=== PATIENT | male | born 1955 | race Caucasian/White ===

== ENCOUNTER → 2018-01-26 10:26 | Outpatient (CLI) | payer BC, SELFPAY ==
[2018-01-26 12:56] LABS: Alanine Aminotransferase 52 U/L (12-78); Albumin/Globulin Ratio 1.4 (1.1-1.8); Alkaline Phosphatase 82 U/L (46-116); Anion Gap 15.1 mEq/L (5-15); Aspartate Amino Transferase 40 U/L (15-37); Bilirubin,Total 0.7 mg/dL (0.2-1.0); Blood Urea Nitrogen 18 mg/dL (7-18); CKMB Relative Index 1.1 U/L (0-4.0); Calcium 9.9 mg/dL (8.5-10.1); Carbon Dioxide 27 mmol/L (21.0-32.0); Chloride 103 mmol/L (98-107); Creatine Kinase 84 U/L (39-308); Creatine Kinase MB 0.9 ng/ml (0.0-3.6); Creatinine,Serum 1.41 mg/dL (0.70-1.30); Estimated Glomerular Filt Rate 51 ml/min (>60); GFR (African American) 61 ML/MIN (>60); Globulin 2.9 gm/dl (1.3-3.2); Glucose 143 mg/dL (74-106); Potassium 4.1 mmoL/L (3.5-5.1); Sodium 141 mmol/L (136-145); Total Protein,Serum 6.9 gm/dL (6.4-8.2); Troponin I < 0.02 ng/ml (0.00-0.06)
== END ==
PROVIDERS: Visit Provider Family Medicine
DX: E11.9 Type 2 diabetes mellitus without complications (principal); I49.3 Ventricular premature depolarization
CPT/HCPCS: 80053; 82550; 82553; 84484; 93005

== ENCOUNTER → 2018-08-05 12:44 | Outpatient (CLI) | payer BC, SELFPAY | PROVIDERS: PCP Family Medicine; Visit Provider Family Medicine | DX: I49.3 Ventricular premature depolarization (principal) | CPT/HCPCS: 93005 ==

== ENCOUNTER → 2020-05-03 05:38 | Outpatient (CLI) | payer MEDICARE, SELFPAY ==
--- NOTE | 2020-05-03 06:14 | CA_ITS ---
APPROVED REPORT Exam: Pharmacologic Technologist: Debra Nobles Ht: 5 ft 9 in Wt: 219 lbs BSA: 2.15 m2 HR: 58 bpm BP: 126/88 mmHg Indications: Chest pain, Shortness of Breath, Dizziness, Prem Carotids Medical History Medications: Irbesartan,,,,, Metoprolol,,,,, Metformin,,,,, Atorvastatin,,,,, HCTZ,,,,, Albuterol,,,,, Montelukast,,,,, Famotidine,,,,, FeNOfibrate,,,,, Esomeprazole,,,,, Celecoxib,,,,, Levocetirizine,,,,, Stress Test Details Test: LEXISCAN HR Resting HR: 65 bpm Max Heart Rate (APMHR): 154 bpm Max HR Achieved: 90 bpm Target HR (85% APMHR): 130 bpm % of APMHR: 58 Recovery HR: 82 bpm BP Resting BP: 126.0/88.0 mmHg Max BP: 153.0/86.0 mmHg Recovery BP: 132.0/82.0 mmHg ECG Clinical Reason for Termination: Completed Protocol Exercise duration: 04:00 min Highest Stage Achieved: Stress ECG Conclusion Resting ECG: Normal sinus rhythm, PVC's Symptoms: No chest pain Arrhythmias/Ectopy: Frequent PVC's, Rare couplet. ST-T Changes: < 1.[address] Segment changes. Conclusion: Non-diagnostic Lexiscan stress test. Patient received the infusion per protocol without chest pain. Less than 1.[address] segment changes noted. Frequent PVC's noted throughout the test with rare couplet noted. See the nuclear report for further information. Electronically signed by : Raza Lew, 05/03/2020 21:49:26
--- NOTE | 2020-05-03 06:14 | NM_ITS ---
APPROVED REPORT Exam: Nuclear Stress Test Indication: Fatigue, HTN, DM, High cholesterol, Former tobacco use, Family history, Dizziness Patient Location: Outpatient Stress Tech: Debra Nobles [place] Tech:Alyssa Bartholomew, ARRT, RT (R)(N) Ht: 5 ft 9 in Wt: 219 lbs HR: 58 bpm BP: 128/88 mmHg BSA: 2.15 m2 BMI: 32.3 History: Fatigue, HTN, DM, High cholesterol, Former tobacco use, Family history, Dizziness Procedure: Patient received a 0.4 mg of intravenous Lexiscan, resting heart rate 58 bpm, resting blood pressure 128/88 mmHg, with Lexiscan maximum heart rate achived was 87 bpm which is Less than 85 % of the maximum predicted heart rate and blood pressure was 132/71 mmHg. With Lexiscan, patient denied any complaint of chest pain. Electrocardiogram Resting electrocardiogram shows sinus rhythm, with Lexiscan there is less than 1.[address] segment depression noted from the baseline EKG. The EKG portion of the Lexiscan is nondiagnostic. Cardiac Stress and Resting SPECT Images: Cardiac Stress and Resting SPECT images were obtained using technetium 99m Myoview 32.4 mCi stress and 10.21 mCi at rest. Gated SPECT for analysis of segmental wall motion and calculation of the ejection fraction also done. Cardiac stress and resting SPECT images show uniform myocardial activity without segmental perfusion abnormality, computer derived ejection fraction is 54% with no regional wall motion abnormality, right ventricle is normal size and contractility. There appears to be transient ischemic dilatation of the left ventricle raising the concerns for presence of balanced ischemia. Conclusion: 1. The EKG portion of the Lexiscan Myoview is nondiagnostic. 2. No scintigraphic evidence of reversible ischemia seen, computer derived ejection fraction is 54% with no regional wall motion abnormality, right ventricle is normal size and contractility. There appears to be transient ischemic dilatation of the left ventricle, raising the concerns for presence of balanced ischemia. 3. Abnormal Lexiscan Myoview study. Electronically signed by : Raza Lew, 05/03/2020 21:51:51
--- NOTE | 2020-05-03 06:17 | CA_ITS ---
APPROVED REPORT Nurse Head: CT Laterality: Bilateral Indications: MARIA D Risk Factors Hypertension: Hyperlipidemia Doppler Spectral Velocity Analysis ECA (R) 87.40/18.80 cm/s ECA (L) 86.00/17.20 cm/s dICA (R) 83.10/28.40 cm/s dICA (L) 86.80/29.20 cm/s Humera (R) 72.60/30.70 cm/s Humera (L) 86.80/36.70 cm/s pICA (R) 64.20/22.50 cm/s pICA (L) 68.10/15.00 cm/s dCCA (R) 69.40/20.60 cm/s dCCA (L) 62.90/18.70 cm/s pCCA (R) 78.00/20.60 cm/s pCCA (L) 90.50/29.20 cm/s Vert (R) 50.80/10.20 cm/s Vert (L) 65.10/21.00 cm/s ICA/CCA 1.20 ICA/CCA 1.40 Findings Duplex evaluation demonstrates stenosis of the right proximal internal carotid artery <20%. Duplex evaluation demonstrates stenosis of the left proximal internal carotid artery in the range of 20-49%, lower end of scale. Plague noted in the bulb. Duplex evaluation demonstrates antegrade flow of the bilateral Vertebral Arteries. Conclusion Duplex evaluation demonstrates stenosis of the right proximal internal carotid artery <20%. Duplex evaluation demonstrates stenosis of the left proximal internal carotid artery in the range of 20-49%, lower end of scale. Plague noted in the bulb. Duplex evaluation demonstrates antegrade flow of the bilateral Vertebral Arteries. Electronically signed by : Bill Piedra MD 05/04/2020 16:36:35
--- NOTE | 2020-05-03 06:17 | CA_ITS ---
APPROVED REPORT EXAM: Comprehensive 2D, Doppler, and color-flow Echocardiogram Medical Facilities Section Director: Jerilyn Mujica RVT Ht: 5 ft 9 in Wt: 219lbs BSA: 2.15 BP: 118/85 mmHg Indications: CP,MURMUR,EX SMOKER,SOA,BREAUX,HTN,HLD,DIZZINESS,CAD,PVC,GERD TDS 2D Dimensions LVOT 1.86 cm (M/F) 1.5-2.5 M-Mode Dimensions RVDd 3.13 cm (0.9-2.6) LVDd 5.01 cm (3.5-5.7) LVDs 3.22 cm (3.5-5.7) IVSd 1.03 cm (0.6-1.1) PWd 0.95 cm (0.6-1.1) EF (Teich) 65.00% FS 35.70% EDV (Teich) 118.80 mL ESV (Teich) 41.60 mL LV Diastology E/A Ratio 0.62 Mitral Valve MV A Velocity 86.00 (40-130 cm/s) Left Ventricle Left atrium is mildly enlarged, left ventricle is normal size, mild concentric left ventricular hypertrophy, visually estimated ejection fraction 55% with no regional wall motion abnormality, grade 1 diastolic dysfunction seen without tissue Doppler evidence of raise left atrial pressure. Right Ventricle Right atrium is normal size, right ventricle is mildly enlarged with normal contractility. Aortic Valve Aortic valve is minimally thickened and fibrosed, there is no aortic stenosis or aortic insufficiency. Mitral Valve Mitral valve is grossly normal, there is mild mitral regurgitation. Tricuspid Valve Tricuspid valve grossly normal, there is mild tricuspid regurgitation, tricuspid regurgitation jet velocity is inadequate for calculation of the right ventricular systolic pressure. Pulmonic Valve Pulmonic valve is poorly visualized. Great Vessels Aortic root is normal size. Pericardium No significant pericardial effusion noted. Conclusion 1. Mildly enlarged left atrium, normal left ventricular size, mild concentric left ventricular hypertrophy, visually estimated ejection fraction 55% with no regional wall motion abnormality, grade 1 diastolic dysfunction seen without tissue Doppler evidence of raise left atrial pressure. 2. Mildly enlarged right ventricle with normal contractility. 3. Mild mitral and tricuspid regurgitation. 4. No significant pericardial effusion noted. Electronically signed by : Raza Lew, 05/03/2020 19:55:30
--- NOTE | 2020-05-03 08:37 | HMH.ITSHM ---
Current Home Medications as stated by this patient Ariana Joseph or signs sales representative. []OSTEO BIFLEX METFORMIN [facility] CELECOXIB FENOFIBRATE INVOKANA ASA HCTZ TRULICITY VENTOLIN COQ10 ESOMEPRAZOLE METOPROLOL ATORVASTATIN LEVOCETIRIZINE FLUTICASONE
== END ==
PROVIDERS: PCP Family Medicine; Visit Provider Internal Medicine Cardiovascular Disease
DX: I49.3 Ventricular premature depolarization; K21.9 Gastro-esophageal reflux disease without esophagitis; R06.00 Dyspnea, unspecified; R07.89 Other chest pain; I65.23 Occlusion and stenosis of bilateral carotid arteries
CPT/HCPCS: 78452; 93017; 93306; 93880; A9502; J2785

== ENCOUNTER → 2020-05-04 07:31 | Outpatient (CLI) | payer SELFPAY ==
--- NOTE | 2020-05-04 07:32 | CT_ITS ---
PROCEDURE: CT HEART W CALCIUM SCORE CLINICAL HISTORY: DM COMPARISON: No exams were available for comparison TECHNIQUE: Axial images obtained with sagittal and coronal reformats. All CT scans at the facility use one or more dose reduction, viz: automated exposure control, ma/kV adjustment per patient size (including targeted exams where dose is matched to indication, i.e. head), or iterative reconstruction technique. FINDINGS: Coronary artery calcium score is 43 indicating mild calcific plaque burden with moderate cardiovascular disease risk. Incidental findings include mild nonspecific thickening of the distal esophagus. There are some degenerative changes in the thoracic spine. IMPRESSION: Mild calcific plaque burden with moderate cardiovascular disease risk Dictated by: Bill Piedra MD 05/04/2020 16:57 Bill Piedra MD in [place] 05/04/2020 16:57
== END ==
PROVIDERS: PCP Family Medicine; Visit Provider Internal Medicine Cardiovascular Disease
DX: E11.9 Type 2 diabetes mellitus without complications (principal); I10 Essential (primary) hypertension; E78.5 Hyperlipidemia, unspecified
CPT/HCPCS: 75571

== ENCOUNTER → 2020-11-29 16:09 | Outpatient (CLI) | payer MEDICARE, SELFPAY | PROVIDERS: PCP Family Medicine; Visit Provider Family Medicine | DX: I49.3 Ventricular premature depolarization (principal) | CPT/HCPCS: 93225; 93226 ==

== ENCOUNTER → 2021-01-06 11:46 | Outpatient (CLI) | payer MEDICARE, SELFPAY ==
[2021-01-06 13:16] LABS: Alanine Aminotransferase 43 U/L (12-78); Albumin Level 4.7 g/dl (3.5-5.0); Alkaline Phosphatase 93 U/L (38-126); Anion Gap 17.2 mEq/L (5-15); Aspartate Amino Transferase 47 U/L (17-59); Bilirubin,Direct 0.1 mg/dl (0.0-0.4); Bilirubin,Indirect 0.5 mg/dL (0.0-0.9); Bilirubin,Total 0.6 mg/dl (0.2-1.3); Bilirubin,Unconjugated 0.5 mg/dL (0.0-1.1); Blood Urea Nitrogen 19 mg/dl (9-20); Calcium 10.5 mg/dl (8.4-10.2); Carbon Dioxide 24 mmol/L (22.0-30.0); Chloride 104 mmol/L (98-107); Chol/HDL Ratio 3.3 (1-3.5); Cholesterol 135 mg/dl (140-200); Estimated Glomerular Filt Rate 67 ml/min (>60); GFR (African American) 81 ML/MIN (>60); Glucose 139 mg/dl (74-100); HDL Cholesterol 41 mg/dl (40-60); Magnesium 1.9 mg/dl (1.6-2.3); Potassium 5.2 mmoL/L (3.5-5.1); Sodium 140 mmol/L (136-145); Total Protein,Serum 7.1 g/dl (6.3-8.2); Triglycerides 244 mg/dl (30-150); VLDL Cholesterol 49 mg/dL (0-40)
[2021-01-06 13:27] LABS: Direct LDL Cholesterol 59.05 mg/dL (100-129)
== END ==
PROVIDERS: Visit Provider Internal Medicine Cardiovascular Disease
DX: E11.69 Type 2 diabetes mellitus with other specified complication (principal); E78.5 Hyperlipidemia, unspecified; I10 Essential (primary) hypertension; I25.10 Atherosclerotic heart disease of native coronary artery without angina pectoris; I65.23 Occlusion and stenosis of bilateral carotid arteries; K21.9 Gastro-esophageal reflux disease without esophagitis; E11.9 Type 2 diabetes mellitus without complications; I49.3 Ventricular premature depolarization; R06.00 Dyspnea, unspecified; R07.9 Chest pain, unspecified; Z79.84 Long term (current) use of oral hypoglycemic drugs
CPT/HCPCS: 36415; 80048; 80061; 80076; 83735

== ENCOUNTER → 2022-01-05 11:15 | Outpatient (CLI) | payer MEDICARE, SELFPAY ==
[2022-01-05 11:56] LABS: Basophils # 0.1 K/mm3 (0-0.2); Basophils % 1.3 % (0.1-2.0); Eosinophils # 0.3 K/mm3 (0.0-0.4); Eosinophils % 4.5 % (0.1-12.0); Hematocrit 47.5 % (42.0-52.0); Hemoglobin 15.5 g/dL (14.1-18.0); Lymphocytes # 1.6 K/mm3 (0.7-4.5); Lymphocytes % 23.9 % (10-50); Mean Corpuscular HGB Conc 32.5 g/dL (31.8-35.4); Mean Corpuscular Hemoglobin 29.8 pg (27.0-31.2); Mean Corpuscular Volume 91.7 fl (80-94); Mean Platelet Volume 9.1 fl (7.4-10.4); Monocytes # 0.5 K/mm3 (0.1-1.0); Monocytes % 6.9 % (1.7-9.3); Neutrophils # 4.1 K/mm3 (1.8-7.8); Neutrophils % 63.4 % (37.0-80.0); Platelet Count 232 K/mm3 (142-424); Red Blood Count 5.18 M/mm3 (4.60-6.20); Red Cell Distribution Width 14.6 % (11.5-17.5); White Blood Count 6.5 K/mm3 (4.8-10.8)
[2022-01-05 12:18] LABS: Chloride 105 mmol/L (98-107)
[2022-01-05 12:19] LABS: Potassium 4.5 mmoL/L (3.5-5.1); Sodium 139 mmol/L (136-145)
[2022-01-05 12:21] LABS: Alanine Aminotransferase 51 U/L (12-78); Anion Gap 11.5 mEq/L (5-15); Aspartate Amino Transferase 50 U/L (17-59); Bilirubin,Unconjugated 0.4 mg/dL (0.0-1.1); Blood Urea Nitrogen 20 mg/dl (9-20); Carbon Dioxide 27 mmol/L (22.0-30.0); Estimated Glomerular Filt Rate 60 ml/min (>60); GFR (African American) 73 ML/MIN (>60)
[2022-01-05 12:22] LABS: Albumin Level 4.2 g/dl (3.5-5.0); Alkaline Phosphatase 129 U/L (38-126); Bilirubin,Direct 0.2 mg/dl (0.0-0.4); Bilirubin,Indirect 0.4 mg/dL (0.0-0.9); Bilirubin,Total 0.6 mg/dl (0.2-1.3); Calcium 9.1 mg/dl (8.4-10.2); Chol/HDL Ratio 4.4 (1-3.5); Cholesterol 142 mg/dl (140-200); Glucose 169 mg/dl (74-100); HDL Cholesterol 32 mg/dl (40-60); Total Protein,Serum 6.4 g/dl (6.3-8.2)
[2022-01-05 12:28] LABS: Triglycerides 478 mg/dl (30-150)
[2022-01-05 12:33] LABS: Direct LDL Cholesterol 52.24 mg/dL (100-129)
[2022-01-05 12:38] LABS: Free T4 (Free Thyroxine) 1.35 ng/dl (0.78-2.19)
[2022-01-05 12:53] LABS: Thyroid Stimulating Hormone 1.45 uIU/mL (0.465-4.68)
== END ==
PROVIDERS: Visit Provider Physician Assistant
DX: E11.69 Type 2 diabetes mellitus with other specified complication (principal); E78.5 Hyperlipidemia, unspecified; I10 Essential (primary) hypertension; I25.10 Atherosclerotic heart disease of native coronary artery without angina pectoris; I49.1 Atrial premature depolarization; I49.3 Ventricular premature depolarization; I65.23 Occlusion and stenosis of bilateral carotid arteries; K21.9 Gastro-esophageal reflux disease without esophagitis; I63.9 Cerebral infarction, unspecified; I11.9 Hypertensive heart disease without heart failure; E11.9 Type 2 diabetes mellitus without complications; R06.00 Dyspnea, unspecified; Z79.84 Long term (current) use of oral hypoglycemic drugs; Z87.891 Personal history of nicotine dependence
CPT/HCPCS: 36415; 80048; 80061; 80076; 84439; 84443; 85025

== ENCOUNTER 2022-02-08 10:48 | Emergency (ER) | payer MEDICARE, SELFPAY ==
[2022-02-08 11:07] VITALS: BP 147/84; PULSE 73; RESP 19; TEMP 37.1; O2SAT 95; BMI 31.7
--- NOTE | 2022-02-08 11:24 | HMH.EDUTC ---
[facility] Disposition Clinical Impression: Exposure to COVID-19 virus, Viral syndrome Sinusitis Qualifiers: Sinusitis location: unspecified location Chronicity: acute Recurrence: non-recurrent Qualified Code(s): J01.90 - Acute sinusitis, unspecified Disposition: Home, Self-Care Condition on Discharge: Good Instructions: DI for Sinusitis, DI for Viral Syndrome, Preventing the Spread of Coronavirus Discharge Instructions Additional Instructions: Drink plenty of fluids. Take tylenol or ibuprofen for pain or fever. Take the medications as directed. Follow up with your regular doctor. GO TO THE ER FOR ANY WORSENING SYMPTOMS Quarantine until you know the results of your covid-19 test. Notify your school or workplace of your results and follow their instructions regarding return to work/school. Prescriptions: Benzonatate [Benzonatate 100mg cap] 100 mg PO TIDP PRN #30 cap PRN Reason: Cough Transmission Status: Received by [facility] Mail Delivery Azithromycin [Z-Be 250mg Tab*] 250 mg PO UD DOSE PK #6 tab Transmission Status: Received by [facility] Mail Delivery Referrals: Henny Oglesby MD [Primary Care Provider] - Time of Disposition: 11:39 Medical Decision Making - Medical Records Medical records reviewed: No: I reviewed the patient's medical records. - Pedro Inquiry Pt receiving controlled substance: No Vital Signs: 02/08/22 11:07 02/08/22 11:44 Temperature 98.7 F 98.7 F Temperature Source Oral Pulse Rate 73 Pulse Rate [Left Radial] 73 Respiratory Rate 19 19 Blood Pressure 147/84 H Blood Pressure [Right Arm] 147/84 H Blood Pressure Mean [Right Arm] 105 02 Sat by Pulse Oximetry 95 - Lab Data Lab results reviewed: Yes: I reviewed the patient's lab results. Orders (Tests/Meds): ORDERS Category Date Time Status Covid-19 Nasal PCR ([facility]) Routine Lab 02/08/22 11:02 Received Full Resp Panel w/COVID ([facility]) Routine Lab 02/08/22 11:44 Received [facility] HPI - General Stated complaint: h/a, body aches, congestion Time Seen by Provider: 02/08/22 11:25 Mode of Arrival: Ambulatory Source of Information: Patient Limitations: No Limitations Description of Symptoms (Recalled from Triage Doc. by RN): pt was exposed to covid from his . here to get a covid test. body aches, head aches, chest congestion, runny nose, watery eyes, feels bad HEENT Symptoms (Recalled from RN notes): Yes Resp Symptoms (Recalled from RN notes): Yes Skin Symptoms (Recalled from RN notes): No MS Symptoms (Recalled from RN notes): No Functional Status (Recalled from RN notes): wnl - History of Present Illness Provider Complaint: He states that his was diagnosed with covid-19 2 days ago. He states that since last night he has had scratchy throat, nonproductive cough, chills and malaise. He denies any shortness of breath. He has nausea, but no vomiting or diarrhea. - Related Data Home Medications Medication Instructions Recorded Confirmed Lactobacills gasseri-Bifidobac cap PO 04/22/20 01/05/22 bifidum,longum 1.5 billion cell capsule albuterol sulfate 90 mcg/actuation 2 inh INHALATION Q6H PRN g 04/22/20 01/05/22 aerosol inhaler canagliflozin 300 mg tablet 300 mg PO DAILY tab 04/22/20 01/05/22 celecoxib 200 mg capsule 200 mg PO DAILY cap 04/22/20 01/05/22 coenzyme Q10 200 mg capsule 200 mg PO DAILY 04/22/20 01/05/22 dulaglutide 1.5 mg/0.5 mL 1.5 mg SQ QWEEK ml 04/22/20 01/05/22 subcutaneous pen injector esomeprazole magnesium 40 mg 40 mg PO DAILY cap 04/22/20 01/05/22 capsule,delayed release fenofibrate nanocrystallized 145 145 mg PO DAILY tab 04/22/20 01/05/22 mg tablet glucosamine-chondroitin 250 mg-200 2 tab PO DAILY tab 04/22/20 01/05/22 mg tablet irbesartan 150 1 tab PO DAILY tab 04/22/20 01/05/22 mg-hydrochlorothiazide 12.5 mg tablet levocetirizine 5 mg tablet 5 mg PO DAILY tab 04/22/20 01/05/22 metformin 500 mg tablet 500 mg PO BI
[2022-02-08 11:44] VITALS: BP 147/84; PULSE 73; RESP 19; TEMP 37.1
[2022-02-08 11:51] LABS: Adenovirus,PCR Not Detected (NotDetected); Bordetella Pertussis Not Detected (NotDetected); Chlamydophila Pneumoniae, PCR Not Detected (NotDetected); Coronavirus 229E Not Detected (NotDetected); Coronavirus NL63 Not Detected (NotDetected); Coronavirus OC43 Not Detected (NotDetected); Coronovirus HKU1,PCR Not Detected (NotDetected); Human Metapneumovirus Not Detected (NotDetected); Influenza A, PCR Not Detected (NotDetected); Influenza AH1, 2009 Not Detected (NotDetected); Influenza AH1, PCR Not Detected (NotDetected); Influenza AH3,PCR Not Detected (NotDetected); Influenza B, PCR Not Detected (NotDetected); Mycoplasma Pneumoniae, PCR Not Detected (NotDetected); Parainfluenza 1, PCR Not Detected (NotDetected); Parainfluenza 2, PCR Not Detected (NotDetected); Parainfluenza 3, PCR Not Detected (NotDetected); Parainfluenza 4, PCR Not Detected (NotDetected); Respiratory Syncytial Virus Not Detected (NotDetected); Rhinovirus/Enterovirus Not Detected (NotDetected)
[2022-02-08 14:29] LABS: Coronavirus 19, PCR Detected (NotDetected)
== END 2022-02-08 11:50 | disposition home or self-care (01) ==
PROVIDERS: Emergency Provider Nurse Practitioner Family; PCP Family Medicine
DX: U07.1 COVID-19 (principal); J01.90 Acute sinusitis, unspecified; B34.9 Viral infection, unspecified; K21.9 Gastro-esophageal reflux disease without esophagitis; I10 Essential (primary) hypertension; E78.5 Hyperlipidemia, unspecified
CPT/HCPCS: 87581; 87632; 87798; 99213; C9803; G0463; U0003; U0005

== ENCOUNTER → 2022-07-28 06:49 | Outpatient (CLI) | payer MEDICARE, SELFPAY ==
--- NOTE | 2022-07-28 | CA_ITS ---
APPROVED REPORT Exam: Exercise Treadmill Technologist: Blanca Villegas, Ht: 5 ft 9 in Wt: 210 lbs BSA: 2.11 m2 HR: 67 bpm BP: 138/93 mmHg Rhythm: NSR, Infe ST-T abnormalities. PVCs Medical History Medical History: HTN, Hyperlipidemia Medications: Metoprolol,,,,, Metformin,,,,, Atorvastatin,,,,, Albuterol,,,,, Montelukast,,,,, Famotidine,,,,, Levocetirizine,,,,, BREo,,,,, DulaGLUTIDE,,,,, CaNAGLIFLOZIN,,,,, Cardiac Risk Factors: HTN, Hyperlipidemia Stress Test Details Test: Tiburcio HR Resting HR: 75 bpm Max Heart Rate (APMHR): 152.046135 bpm Max HR Achieved: 141 bpm Target HR (85% APMHR): 129.621140 bpm % of APMHR: 92.76 Recovery HR: 122 bpm BP Resting BP: 155/83 mmHg Max BP: 182/80 mmHg Recovery BP: 182.0/80.0 mmHg ECG Resting ECG: NSR, Inf ST-T abnormalities, PVCs noted Clinical Reason for Termination: Dyspnea Exercise duration: 09:00 min Highest Stage Achieved: Exercise capacity: 10.1 METs Stress ECG Conclusion Total excersie 9 minutes. 10.1 METS Pt experinced no CP. Frequent PVCs at rest resolved with stress. <1.5mm ST segment changes. Abnormal, non-diagnostic. Stress due to baseline EKG abnormalities. See myoview images. Test Summary RECOVERY 05:26 0.0 0.0 99 . 182/ 80 . . REST . . . . . . . Standing REST . . . . . . . Standing REST 05:57 0.0 0.0 75 . 155/ 83 . . Stage 1 01:00 10.0 1.7 96 . . . . Stage 1 02:00 10.0 1.7 101 . . . . Stage 1 03:00 10.0 1.7 104 . 145/ 85 . . Stage 2 01:00 12.0 2.5 108 . . . . Stage 2 02:00 12.0 2.5 112 . . . . Stage 2 03:00 12.0 2.5 113 . 160/ 92 . . Stage 3 01:00 14.0 3.4 121 . . . . Stage 3 02:00 14.0 3.4 129 . . . . Stage 3 03:00 14.0 3.4 139 . . . Stop exercise at 09:00 RECOVERY 01:00 0.0 0.0 124 . 182/ 80 . . RECOVERY 02:00 0.0 0.0 109 . 182/ 80 . . RECOVERY 03:00 0.0 0.0 100 . 182/ 80 . . RECOVERY 04:00 0.0 0.0 96 . 182/ 80 . . RECOVERY 05:00 0.0 0.0 98 . 182/ 80 . . RECOVERY 05:26 0.0 0.0 99 . 182/ 80 . . Electronically signed by : Raza Lew MD 07/28/2022 14:05:44
--- NOTE | 2022-07-28 07:00 | NM_ITS ---
APPROVED REPORT Exam: Nuclear Stress Test Indication: HTN, DM, HYPERLIPIDEMIA, FM HX., C.P. Patient Location: Outpatient Stress Tech: Blanca Villegas [place] Tech:JEANNIE Smith RT (R)(N)(M) Ht: 5 ft 9 in Wt: 211 lbs HR: 67 bpm BP: 138/93 mmHg BSA: 2.11 m2 TID: 1.00 BMI: 31.1 History: HTN, DM, HYPERLIPIDEMIA, FM HX., C.P. Procedure: Patient exercised on Tiburcio protocol 9:00 minutes and sec, resting heart rate 67 bpm, resting blood pressure 138/93 mmHg, with exercise maximum heart rate achived was 141 bpm which is 93 % of the maximum predicted heart rate and blood pressure was 182/80 mmHg. Test was stopped due to FATIGUE. Patient denied any complaint of chest pain. Patient has Good exercise capacity, achieved 10.1 METs of workload on treadmill, the blood pressure response to exercise was Adequate. Electrocardiogram Resting electrocardiogram showed sinus rhythm, nonspecific ST-T changes, with exercise there is less than 1.[address] segment depression noted from the baseline EKG. The EKG portion of the exercise Myoview is nondiagnostic. Cardiac Stress and Resting SPECT Images: Cardiac Stress and Resting SPECT images were obtained using technetium 99m Myoview 29.5 mCi stress and 9.90 mCi at rest. Gated SPECT for analysis of segmental wall motion and calculation of the ejection fraction also done. Cardiac stress and resting SPECT images show uniform myocardial activity without segmental perfusion abnormality, computer derived ejection fraction is 51% with no regional wall motion abnormality, right ventricle is normal size and contractility. Conclusion: 1. The EKG portion of the exercise Myoview is nondiagnostic due to baseline abnormal EKG, patient has good exercise capacity achieved 10.1 METs of workload on treadmill, the blood pressure response to exercise was adequate, there was no exercise-induced chest discomfort. 2. No scintigraphic evidence of reversible ischemia seen, computer derived ejection fraction 51% with no regional wall motion abnormality, right ventricle is normal size and contractility. 3. Normal exercise Myoview study. Electronically signed by : Raza Lew MD 07/28/2022 14:08:22
== END ==
PROVIDERS: PCP Family Medicine; Visit Provider Internal Medicine Cardiovascular Disease
DX: E78.5 Hyperlipidemia, unspecified (principal); I10 Essential (primary) hypertension; I65.23 Occlusion and stenosis of bilateral carotid arteries; I20.8 Other forms of angina pectoris
CPT/HCPCS: 78452; 93017; A9502

== ENCOUNTER 2023-01-10 10:00 | Day surgery (SDC) | payer MEDICARE, SELFPAY ==
[2023-01-10 10:07] VITALS: BMI 31.6
[2023-01-10 10:30] VITALS: BP 160/87; PULSE 88; RESP 18; TEMP 36.9; O2SAT 97
[2023-01-10 10:35] VITALS: PULSE 83
[2023-01-10 10:42] VITALS: BP 161/84; PULSE 87; PULSE 89; RESP 18; O2SAT 96
[2023-01-10 10:43] VITALS: BP 161/84; PULSE 89; RESP 20; O2SAT 96
--- NOTE | 2023-01-10 12:39 | P.PCN_ITS ---
[facility] Loop Recorder Date: 01/10/23 Time: 10:00 Procedure Performed:: Implantation of loop recorder Indication:: Palpitation Technique:: Patient was brought to the cardiac Silk Screen Operator. After informed consent obtained, 1% lidocaine with epinephrine was used to anesthetize the site along the left anterior aspect of the chest near the sternal border. Using the preformed scalpel, an incision was made and using the supplied preloaded apparatus, the loop recorder was placed subcutaneously without difficulty. Following the deployment of the loop recorder interrogation of the device was performed to ensure appropriate voltage was being detected. Once this was verified, Steri- Strips were placed over the incision and the patient was prepped to discharge home. Patient tolerated the procedure well with minimal discomfort. Impression:: Successful implantation of loop recorder Serial Number:: [employer] [facility] model 4500 Serial #[id number] Plan:: Routine postop care
== END 2023-01-10 10:57 | disposition home or self-care (01) ==
PROVIDERS: PCP Family Medicine; Visit Provider Internal Medicine
DX: R00.2 Palpitations (principal); E11.9 Type 2 diabetes mellitus without complications; Z79.4 Long term (current) use of insulin; R55 Syncope and collapse; I25.10 Atherosclerotic heart disease of native coronary artery without angina pectoris; I10 Essential (primary) hypertension; I65.23 Occlusion and stenosis of bilateral carotid arteries; K21.9 Gastro-esophageal reflux disease without esophagitis; I49.3 Ventricular premature depolarization; R42 Dizziness and giddiness; E78.5 Hyperlipidemia, unspecified
CPT/HCPCS: 33285; C1764

== ENCOUNTER → 2023-03-29 14:12 | Outpatient (CLI) | payer MEDICARE, SELFPAY ==
--- NOTE | 2023-03-29 14:23 | XR_ITS ---
FINAL REPORT CLINICAL HISTORY: Lt knee pain FINDINGS: LEFT KNEE SERIES Three views of the left knee were obtained. There is no acute fracture or dislocation. There is moderate degenerative change. There is no soft tissue abnormality. There are one or two loose bodies posteriorly measuring approximately 7 mm. IMPRESSION: Moderate degenerative change. One or two loose bodies posteriorly measuring approximately 7 mm. Reviewed, Interpreted and Dictated by Sanjeev Rodrigez III, MD Transcribed by Cristóbal Menezes Authenticated and . [facility]
== END ==
PROVIDERS: PCP Family Medicine; Visit Provider Orthopaedic Surgery
DX: M25.562 Pain in left knee (principal)
CPT/HCPCS: 73562

== ENCOUNTER → 2023-05-10 07:35 | Outpatient (CLI) | payer MEDICARE, SELFPAY ==
[2023-05-10 07:52] LABS: Basophils # 0.1 K/mm3 (0-0.2); Basophils % 0.9 % (0.1-2.0); Eosinophils # 0.5 K/mm3 (0.0-0.4); Eosinophils % 7.8 % (0.1-12.0); Hematocrit 46.4 % (42.0-52.0); Hemoglobin 14.7 g/dL (14.1-18.0); Lymphocytes # 1.6 K/mm3 (0.7-4.5); Lymphocytes % 25.9 % (10-50); Mean Corpuscular HGB Conc 31.8 g/dL (31.8-35.4); Mean Corpuscular Hemoglobin 28.3 pg (27.0-31.2); Mean Corpuscular Volume 89.1 fl (80-94); Mean Platelet Volume 8.1 fl (7.4-10.4); Monocytes # 0.5 K/mm3 (0.1-1.0); Monocytes % 7.1 % (1.7-9.3); Neutrophils # 3.7 K/mm3 (1.8-7.8); Neutrophils % 58.3 % (37.0-80.0); Platelet Count 230 K/mm3 (142-424); Red Blood Count 5.21 M/mm3 (4.60-6.20); Red Cell Distribution Width 14.1 % (11.5-17.5); White Blood Count 6.3 K/mm3 (4.8-10.8)
[2023-05-10 09:03] LABS: Chloride 102 mmol/L (98-107); Potassium 4.4 mmoL/L (3.5-5.1); Sodium 140 mmol/L (136-145)
[2023-05-10 09:06] LABS: Blood Urea Nitrogen 23 mg/dl (9-20); Estimated Glomerular Filt Rate 60 ml/min (>60); GFR (African American) 73 ML/MIN (>60)
[2023-05-10 09:07] LABS: Anion Gap 14.4 mEq/L (5-15); Calcium 9.4 mg/dl (8.4-10.2); Carbon Dioxide 28 mmol/L (22.0-30.0); Glucose 176 mg/dl (74-100)
== END ==
PROVIDERS: PCP Family Medicine; Visit Provider Nurse Practitioner Family
DX: E11.9 Type 2 diabetes mellitus without complications (principal); E78.5 Hyperlipidemia, unspecified; I10 Essential (primary) hypertension; I25.10 Atherosclerotic heart disease of native coronary artery without angina pectoris; I49.3 Ventricular premature depolarization; I63.9 Cerebral infarction, unspecified; I65.29 Occlusion and stenosis of unspecified carotid artery; K21.9 Gastro-esophageal reflux disease without esophagitis
CPT/HCPCS: 36415; 80048; 85025

== ENCOUNTER → 2023-08-13 11:32 | Outpatient (CLI) | payer MEDICARE, SELFPAY ==
[2023-08-13 12:52] LABS: Basophils # 0.1 K/mm3 (0-0.2); Basophils % 0.8 % (0.1-2.0); Eosinophils # 0.4 K/mm3 (0.0-0.4); Eosinophils % 4.1 % (0.1-12.0); Hematocrit 48.7 % (42.0-52.0); Hemoglobin 16.1 g/dL (14.1-18.0); Lymphocytes # 1.8 K/mm3 (0.7-4.5); Lymphocytes % 21.2 % (10-50); Mean Corpuscular HGB Conc 33.1 g/dL (31.8-35.4); Mean Corpuscular Hemoglobin 29.9 pg (27.0-31.2); Mean Corpuscular Volume 90.1 fl (80-94); Mean Platelet Volume 8.2 fl (7.4-10.4); Monocytes # 0.7 K/mm3 (0.1-1.0); Monocytes % 7.8 % (1.7-9.3); Neutrophils # 5.7 K/mm3 (1.8-7.8); Platelet Count 229 K/mm3 (142-424); White Blood Count 8.6 K/mm3 (4.8-10.8)
[2023-08-13 13:31] LABS: Alanine Aminotransferase 39 U/L (12-78); Albumin Level 4.5 g/dl (3.5-5.0); Alkaline Phosphatase 100 U/L (38-126); Anion Gap 10.2 mEq/L (5-15); Aspartate Amino Transferase 45 U/L (17-59); Bilirubin,Direct 0.2 mg/dl (0.0-0.4); Bilirubin,Indirect 0.3 mg/dL (0.0-0.9); Bilirubin,Total 0.5 mg/dl (0.2-1.3); Bilirubin,Unconjugated 0.3 mg/dL (0.0-1.1); Blood Urea Nitrogen 22 mg/dl (9-20); Calcium 9.2 mg/dl (8.4-10.2); Carbon Dioxide 27 mmol/L (22.0-30.0); Chloride 98 mmol/L (98-107); Cholesterol 150 mg/dl (140-200); Estimated Glomerular Filt Rate 55 ml/min (>60); GFR (African American) 66 ML/MIN (>60); Glucose 177 mg/dl (74-100); HDL Cholesterol 30 mg/dl (40-60); Magnesium 1.9 mg/dl (1.6-2.3); Potassium 4.2 mmoL/L (3.5-5.1); Sodium 131 mmol/L (136-145); Total Protein,Serum 7.1 g/dl (6.3-8.2)
[2023-08-13 13:38] LABS: Triglycerides 461 mg/dl (30-150)
[2023-08-13 13:42] LABS: Direct LDL Cholesterol 58.75 mg/dL (100-129)
[2023-08-13 13:48] LABS: Free T4 (Free Thyroxine) 1.27 ng/dl (0.78-2.19)
[2023-08-13 14:01] LABS: Thyroid Stimulating Hormone 1.51 uIU/mL (0.465-4.68)
== END ==
PROVIDERS: PCP Family Medicine; Visit Provider Internal Medicine
DX: E11.9 Type 2 diabetes mellitus without complications (principal); E78.5 Hyperlipidemia, unspecified; I10 Essential (primary) hypertension; I25.10 Atherosclerotic heart disease of native coronary artery without angina pectoris; I49.3 Ventricular premature depolarization; K21.9 Gastro-esophageal reflux disease without esophagitis; I65.23 Occlusion and stenosis of bilateral carotid arteries; Z79.84 Long term (current) use of oral hypoglycemic drugs
CPT/HCPCS: 36415; 80048; 80061; 80076; 83735; 84439; 84443; 85025

== ENCOUNTER → 2023-08-20 10:21 | Outpatient (CLI) | payer MEDICARE, SELFPAY ==
[2023-08-20 12:02] LABS: Anion Gap 12.1 mEq/L (5-15); Blood Urea Nitrogen 18 mg/dl (9-20); Calcium 8.7 mg/dl (8.4-10.2); Carbon Dioxide 24 mmol/L (22.0-30.0); Chloride 101 mmol/L (98-107); Estimated Glomerular Filt Rate 60 ml/min (>60); GFR (African American) 73 ML/MIN (>60); Glucose 245 mg/dl (74-100); Potassium 4.1 mmoL/L (3.5-5.1); Sodium 133 mmol/L (136-145)
== END ==
PROVIDERS: PCP Family Medicine; Visit Provider Nurse Practitioner
DX: E87.1 Hypo-osmolality and hyponatremia (principal); I51.89 Other ill-defined heart diseases; I49.3 Ventricular premature depolarization; I25.10 Atherosclerotic heart disease of native coronary artery without angina pectoris; E78.5 Hyperlipidemia, unspecified; K21.9 Gastro-esophageal reflux disease without esophagitis; E11.9 Type 2 diabetes mellitus without complications; Z79.84 Long term (current) use of oral hypoglycemic drugs
CPT/HCPCS: 36415; 80048

== ENCOUNTER 2024-08-22 10:49 | Outpatient (CLI) | payer MEDICARE, SELFPAY ==
--- NOTE | 2024-08-22 10:52 | CA_ITS ---
FINAL REPORT TECHNIQUE: Color Doppler, duplex Doppler and russell scale sonography of the bilateral neck arterial vasculature was performed. Velocities were measured in the carotid arteries. Stenosis evaluation based on the validated velocity criteria. CLINICAL HISTORY: Dizziness FINDINGS: The peak systolic velocity of the right common carotid artery is 66 cm/s. The peak systolic velocity of the right internal carotid artery is 75 cm/s and end diastolic velocity 22 cm/s. A small amount of plaque is present. The right external carotid artery is patent. The right vertebral artery is patent with antegrade flow. The peak systolic velocity of the left common carotid artery is 74 cm/s. The peak systolic velocity of the left internal carotid artery is 80 cm/s and end diastolic velocity 25 cm/s. A small amount of plaque is present. The left external carotid artery is patent.The left vertebral artery is patent with antegrade flow. IMPRESSION: Less than 50% bilateral carotid stenoses. Bilateral patent vertebral arteries with antegrade flow. If indicated, CTA or MRA could further evaluate. Reviewed, Interpreted and Dictated by Sanjeev Rodrigez III, MD Transcribed by Leah Thoams Authenticated and [facility]
--- OUTSIDE RECORDS SUMMARY | 2024-08-22 10:52 | XMS_ITS ---
Author Organization [facility] Address [address] [facility] [address] [place] [id number] Care Team Providers Care Remote Sensing Technologist Name Role Phone Alok Oglesby Primary Care Provider [phone] REASON FOR VISIT Test results* Encounters Encounter Location Date Provider Diagnosis [facility] [address] [facility] [address] [place] [id number] 01/23/2024 Alok Oglesby PLAN OF TREATMENT Next Appt Details Provider Name:Alok Butt er, 09/01/2024 11:30:00 AM, [address] [facility], [address], [place], [id number],
--- OUTSIDE RECORDS SUMMARY | 2024-08-22 10:52 | XMS_ITS ---
[facility] Address [address] [place] [id number] Care Team Providers Care Tie In Hand Name Role Phone Alok Oglesby Primary Care Provider [phone] ALLERGIES Allergen (clinical drug ingredient) Drug/Non Drug Allergy documented on EMR Reaction Allergy Type Onset Date Status Mold Unknown Allergy Active RESULTS Component Value Reference Range Notes Glycohemoglobin A1c (in hous e) Reviewed date:05/27/2024 08:55:16 AM Interpretation: Performing Lab: Notes/Report: glycohemoglobin 8.7% 5 - 6.5 % REASON FOR VISIT 4 months, Needs labs & diabetic eye exam MEDICATIONS Medication SIG (Take, Route, Frequency, Duration) Notes Start Date End Date Status Celecoxib 200 MG 1 cap(s) orally once a day for 90 days Active Irbesartan-hydroCHLOROthiazi de 150-12.5 MG 2 orally once a day Active Nystatin-Triamcinolone 898928-8.1 UNIT/GM 1 application Externally Twice a day 05/22/2023 Active Invokana 300 MG TAKE 1 TABLET EVERY DAY for 90 Active Trulicity 3 MG/0.5ML INJECT 3MG (1 PEN) UNDER THE SKIN ONCE A WEEK DIRECTED for 84 Active Flonase Allergy Relief 50 MCG/ACT 1 spray(s) intranasally once a day 12/21/2016 Active Mantilla Colon Health - 1 cap(s) orally once a day Active Coenzyme Q-10 100 MG 1 cap(s) orally onc e a day 09/26/2017 Active Atorvastatin Calcium 40 MG 1 tab(s) oral ly once a day for 30 day(s) Active Levocetirizine Dihydrochloride 5 MG 1 tab(s) orally once a day (in the evening) Active Fish Oil 1000 MG 1 cap(s) orally once daily Active Ventolin HFA 108 (90 Base) MCG/ACT 2 puff(s) inhaled 4 times a day for 30 day(s) 12/09/2016 Active Glucosamine Chondroitin MSM - 1 tab(s) orally bid Active Metoprolol Succinate ER 50 MG 1 tablet Orally At Bed Time Active Metoprolol Succinate 25 MG 1 capsule Ora lly Once a day for 30 day(s) Active Glimepiride 4 MG 1 tablet with breakf ast or the first main meal of the day Orally Once a day for 90 days 05/26/2024 Active Fenofibrate 145 MG TAKE 1 TABLET EVERY DAY for 90 Active metFORMIN HCl 500 MG TAKE 1 TABLET TWICE DAILY orally 2 times a day for 90 days Active Xarelto 20 MG 1 tablet with food Orally Once a day for 30 day(s) Active Esomeprazole Magnesium 40 MG 1 cap(s) or ally once a day for 90 days Active VITAL SIGNS Weight 210.4 lbs 05/26/2024 Blood pressure systolic 138 mm Hg 05/26/20 24 Blood pressure diastolic 80 mm Hg 024 Heart Rate 74 /min 05/26/2024 Height 68.80 in 05/26/2024 BMI 31.25 kg/m2 05/26/2024 Encounters Encounter Location Date Provider Diagnosis [facility] [address] [id number] 05/26/2024 Alok Oglesby Essential hypertensi on I10 ; Coronary artery disease involving [place] coronary artery of [place] heart without angina pectoris I25.10 ; Type 2 diabetes mellitus without complications E11.9 and Benign prostatic disease N42.9 ASSESSMENTS Encounter Date Diagnosis Assessment Notes Treatment Notes Treatment Clinical Notes 05/26/2024 Essential hypertension (ICD-10 - I10) 05/26/2024 Coronary artery disease involving [place] coronary artery of [place] heart without angina pectoris (ICD-10 - I25.10) 05/26/2024 Type 2 diabetes mellitus without complications (ICD-10 - E11.9) 05/26/2024 Benign prostatic disease (ICD-10 - N42.9) PLAN OF TREATMENT Medication Medication Name Sig Start Date Stop Date Notes Glimepiride 2 MG 1 tablet with breakf ast or the first main meal of the day Orally Once a day Glimepiride 4 MG 1 tablet with breakf ast or the first main meal of the day Orally Once a day for 90 days 05/26/2024 Next Appt Details Follow Up: 3 Months, Reason: Provider Name:Alok Douglas Daquan varma, 09/01/2024 11:30:00 AM, [address], [address], [place], [place], [phone], Progress Notes * Examination Category Sub-Category Detail Notes General Examination HEENT: some upper l id ptosis, and lower? Heart: RSR, no ectopics hea rd Lungs: good air entry bilat erally Abdomen: soft and nontender, no organomegaly or masses Extremities: no leg edema General Appearance: NAD Skin: normal, no rash Neurologic Exam: Intact, gait normal Neck: supple, no lymphaden opathy Oral cavity: no lesions, mucosa m oist and WNL, no erythema Peripheral pulses: normal Back: normal, mild dorsal kyphosis Chest: normal shape and exp ansion History and Physical Notes * HPI (History of Present Illness) Category Sub-Category Detail Notes Cardiology Short of Breath Chest Pain Palpitations Dizziness
--- OUTSIDE RECORDS SUMMARY | 2024-08-22 10:52 | XMS_ITS ---
Author Organization [facility] Address [facility] [address] [facility] [address] [place] [id number] Care Team Providers Care Testing Machine Operator Name Role Phone Alok Oglesby Primary Care Provider REASON FOR VISIT lab results Encounters Encounter Location Date Provider Diagnosis [facility] [address] [facility] [address] [place] [id number] 01/25/2024 Alok Oglesby PLAN OF TREATMENT Next Appt Details Provider Name:Alok Butt er, 09/01/2024 11:30:00 AM, [address] [facility], [address], [place], [phone],
--- OUTSIDE RECORDS SUMMARY | 2024-08-22 10:53 | XMS_ITS | Clinical Summary ---
Author Organization Healthcare Address [address] [place] [address] Care Team Providers Care Paper Tube Machine Operator Name Role Phone Unavailable Primary Care Provider Unavailabl e Family History Medical History Relation Name Comments Cardiac disorder Father Diabetes Mother Relation Name Status Comments Father Mother Social History Tobacco Use Types Packs/Day Years Used Date Smoking Tobacco: Former Sex and Gender Information Value Date Recorded Sex Assigned at Not on file Legal Sex Male 6:44 PM EDT Gender Identity Not on file Sexual Orientation Not on file Last Filed Vital Signs Vital Sign Reading Time Taken Comments Blood Pressure - - Pulse - - Temperature - - Respiratory Rate - - Oxygen Saturation - - Inhaled Oxygen Concentration - - Weight 108 kg (239 lb) 06/15/2015 1:45 PM EDT Height 177.8 cm (5' 10 ) 06/15/2015 1:45 PM EDT Body Mass Index 34.29 06/15/2015 1:45 PM EDT Plan of Treatment Not on file
--- OUTSIDE RECORDS SUMMARY | 2024-08-22 10:53 | XMS_ITS | Patient Health Record ---
[facility] [address] [place] [id number] Care Team Providers Care Development Lead Name Role Phone Alok Oglesby Primary Care Provider ALLERGIES Allergen (clinical drug ingredient) Drug/Non Drug Allergy documented on EMR Reaction Allergy Type Onset Date Status Mold Unknown Allergy Active RESULTS Component Value Reference Range Notes Glycohemoglobin A1c (in hous e) Reviewed date:05/27/2024 08:55:16 AM Interpretation: Performing Lab: Notes/Report: glycohemoglobin 8.7% 5 - 6.5 % P-Microalbumin/Creatinine, R andom Urine Sample Reviewed date:11/22/2023 11:51:05 AM Interpretation:see duplicate order Performing Lab: Notes/Report: see duplicate order Albumin/Creatinine Ratio, Urine Creatinine, Urine Microalbumin, Urine, Random Test Cancelled P-Comprehensive Metabolic Pa taiwo (CMP) Reviewed date:11/20/2023 08:24:10 AM Interpretation:Glu 199, Bun 26, Creat 1.45, Egfr 52 Performing Lab: Notes/Report: Test performed by [facility] , [address], [place] [address] Alexandre Reveles MD, [employer] CLIA: [id number] Sodium 138 135-145 mEq/L Potassium 5.1 3.5-5.3 mEq/L Chloride 101 97-108 mEq/L CO2 25 22-32 mEq/L Glucose 199 65-99 mg/dL BUN 26 8-23 mg/dL Creatinine 1.45 0.70-1.30 mg/dL Calcium 10.2 8.6-10.4 mg/dL eGFR by Creatinine 52 >59 mL/min/1.73m2 Protein 7.1 6.0-8.3 g/dL Albumin 4.6 3.5-5.3 g/dL Alkaline Phosphatase 100 40-129 IU/L ALT (SGPT) 39 <5-55 IU/L AST (SGOT) 33 <5-46 IU/L Bilirubin, Total 0.6 <0.2-1.2 mg/dL A/G Ratio 1.8 1.1-2.5 mg/dL Glycohemoglobin A1c (in hous e) Reviewed date:11/19/2023 01:08:20 PM Interpretation:10.0% Performing Lab: Notes/Report: 10.0% glycohemoglobin 10.0% 5 - 6.5 % P-PSA Reviewed date:01/23/2024 03:48:01 PM Interpretation:Normal Performing Lab: Notes/Report: Test performed by [facility] [address] [place] [address] , [address], [place] [address] Alexandre Reveles MD, [employer] CLIA: [id number] PSA 0.19 <4.00 ng/mL Please note this is an ultrasensitive PSA assay with a lower limit of detection of 0.014 ng/mL. This test is performed by the Segundo ECLIA methodology. Values obtained with different assay methods or kits cannot be directly compared. P-Lipid Panel Reviewed date:01/23/2024 03:48:01 PM Interpretation:trig 211, hdl 31 Performing Lab: Notes/Report: Test performed by [facility] [address] [place] [address] , [address], [place] [address] Alexandre Reveles MD, [employer] CLIA: [id number] Cholesterol 131 <200 mg/dL Triglycerides 211 <150 mg/dL HDL Cholesterol 31 >39 mg/dL Cholesterol / HDL Ratio 4.23 0.00-4.99 Ratio Non-HDL Cholesterol 100 <130 mg/dL LDL Cholesterol (Calculation) 58 <130 mg/dL LDL Cholesterol Levels* Less than 100 mg/dL Optimal 100 to 129 mg/dL Near Optimal/ Above Optimal 130 to 159 mg/dL Borderline High 160 to 189 mg/dL High 190 mg/dL and above Very High * Categories as recommended by the 2004 ATPIII guidelines LDL/HDL Ratio 1.9 <3.3 Ratio LDL Cholesterol Patient History Test Date: 01/22/2024 LDL Results: 58 Units: mg/dL % Change: - P-Comprehensive Metabolic Pa taiwo (CMP) Reviewed date:01/23/2024 03:48:01 PM Interpretation:gluc 142 Performing Lab: Notes/Report: Test performed by [facility], [address] , [facility], [place] [address] Alexandre Reveles MD, [employer] CLIA: [id number] Sodium 139 135-145 mEq/L Potassium 4.7 3.5-5.3 mEq/L Chloride 102 97-108 mEq/L CO2 27 22-32 mEq/L Glucose 142 65-99 mg/dL BUN 20 8-23 mg/dL Creatinine 1.16 0.70-1.30 mg/dL Calcium 9.8 8.6-10.4 mg/dL eGFR by Creatinine 68 >59 mL/min/1.73m2 Protein 6.4 6.0-8.3 g/dL Albumin 4.4 3.5-5.3 g/dL Alkaline Phosphatase 76 40-129 IU/L ALT (SGPT) 33 <5-55 IU/L AST (SGOT) 34 <5-46 IU/L Bilirubin, Total 0.5 <0.2-1.2 mg/dL A/G Ratio 2.2 1.1-2.5 mg/dL P-Microalbumin/Creatinine, R andom Urine Sample Reviewed date:11/26/2023 03:56:16 PM Interpretation: Performing Lab: Notes/Report: Test performed by [facility] [address] [place] [address] , [address], [place] [address] Alexandre Reveles MD, [employer] CLIA: [id number] Albumin/Creatinine Ratio, Urine See Comment 0-30 ug/mg Unable to calculate Urine Albumin/Creatinine Ratio when urine creatinine or urine albumin fall outside established reportable range. Microalbumin, Urine, Random <0.3 Creatinine, Urine 67.5 Glycohemoglobin A1c (in hous e) Reviewed date:01/23/2024 03:48:01 PM Interpretation:8.1 Performing Lab: Notes/Report: 8.1 glycohemoglobin 8.1% 5 - 6.5 % MEDICATIONS Medication SIG (Take, Route, Frequency, Duration) Notes Start Date End Date Status Flonase Allergy Relief 50 MCG/ACT 1 spray(s) intranasally once a day 12/21/2016 Active [employer]Duck [facility] - 1 cap(s) orally once a day Active Coenzyme Q-10 100 MG 1 cap(s) orally onc e a day 09/26/2017 Active Glimepiride 4 MG 1 tablet with breakf ast or the first main meal of the day Orally Once a day for 90 days 05/26/2024 Active Atorvastatin Calcium 40 MG 1 tab(s) oral ly once a day for 30 day(s) Active metFORMIN HCl 500 MG TAKE 1 TABLET TWICE DAILY orally 2 times a day for 90 days Active Fish Oil 1000 MG 1 cap(s) orally once daily Active Ventolin HFA 108 (90 Base) MCG/ACT 2 puff(s) inhaled 4 times a day for 30 day(s) 12/09/2016 Active Glucosamine Chondroitin MSM - 1 tab(s) orally bid Active Levocetirizine Dihydrochloride 5 MG 1 tab(s) orally once a day (in the evening) Active Metoprolol Succinate ER 50 MG 1 tablet Orally At Bed Time Active Fenofibrate 145 MG TAKE 1 TABLET EVERY DAY for 90 Active Trulicity 3 MG/0.5ML INJECT 3MG (1 PEN) UNDER THE SKIN ONCE A WEEK DIRECTED for 84 Active Celecoxib 200 MG 1 cap(s) orally once a day for 90 days Active Xarelto 20 MG 1 tablet with food Orally Once a day for 30 day(s) Active Irbesartan-hydroCHLOROthiazi de 150-12.5 MG 2 orally once a day Active Esomeprazole Magnesium 40 MG 1 cap(s) or ally once a day for 90 days Active Metoprolol Succinate 25 MG 1 capsule Ora lly Once a day for 30 day(s) Active Nystatin-Triamcinolone 404837-5.1 UNIT/GM 1 application Externally Twice a day 05/22/2023 Active Invokana 300 MG TAKE 1 TABLET EVERY DAY for 90 Active IMMUNIZATIONS Vaccine Route Administration Date Status Comme nts COVID 19 Pfizer Unknown 12/06/2020 Administered COVID 19 Pfizer Unknown 01/03/2021 Administered COVID 19 Pfizer Unknown 07/04/2021 Administered Flublok IM Intramuscular 08/05/2018 Administered Fluzone High Dose (65yr and older) IM Intramuscular 09/16/2019 Administered Fluzone High Dose (65yr and older) IM Intramuscular 06/30/2020 Administered Fluzone High Dose (65yr and older) Unknown 07/11/2022 Administered Fluzone High Dose (65yr and older) Unknown 07/02/2023 Administered Fluzone PF Quad (6-35 months) Unknown 07/20/2015 Administered Fluzone PF Quad (6-35 months) Unknown 09/06/2016 Administered Fluzone Quad (6months&older) Unknown 07/22/2015 Administered Fluzone Quad (6months&older) IM Intramuscular 09/06/2016 Administered Fluzone Quad-Medicare (6months&older) Unknown 07/04/2021 Administered H1N1 flu vaccine IM Intramuscular 08/09/2009 Administered PNEUMOVAX 23 VACCINE IM Intramuscular 01/26/2018 Administe red Prevnar (PCV13) IM Intramuscular 09/16/2019 Administered Shingrix Unknown 06/30/2020 Administered Shingrix Unknown 06/30/2020 Administered Shingrix Unknown 08/30/2020 Administered Tetanus Tdap-Adacel (over 7yrs) IM Intramuscular 01/26/2018 Administered SOCIAL HISTORY Sex Assigned At : Social History Observation Description Sex Assigned At Unknown PROBLEMS Problem Type ICD Code Onset Dates Problem Status W/U Status Risk SNOMED Code Notes Problem Type 2 diabetes mellitus without complications (E11.9) Active confirmed 002221230 Problem Vitamin B12 deficien cy (E53.8) Active confirmed 161082781 Problem Essential hypertensi on (I10) Active confirmed 67641883 Problem Screen for colon can cer (Z12.11) Active confirmed 645025453 Problem Obstructive sleep ap dilcia (G47.33) Active confirmed 32247336 Problem Mixed hyperlipidemia (E78.2) Active confirmed 695345510 Problem GERD without esophagitis (K21.9) Active confirmed 957108049 Problem Other chronic pain (G89.29) Active confirmed 35747482 Problem Benign prostatic disease (N42.9) Active confirmed 87753161 Problem Obstructive sleep ap dilcia syndrome (G47.33) Active confirmed 42744623 Problem 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.10) Active confirmed 371462688 Problem Dyslipidemia (E78.5) Active confirmed 3 42830619 Problem Pure hypercholesterolemia (E78.00) Active confirmed 185322553 Problem Mild intermittent asthmatic bronchitis without complication (J45.20) Active confirmed 194667906 Problem Ventricular ectopics (I49.3) Active confirmed 78143447 VITAL SIGNS Heart Rate 74 /min 05/26/2024 Blood pressure diastolic 80 mm Hg 05/26/2024 Height 68.80 in 05/26/2024 Blood pressure systolic 138 mm Hg 05/26/2024 Weight 210.4 lbs 05/26/2024 BMI 31.25 kg/m2 05/26/2024 Encounters Encounter Location Date [facility] [address] [facility] [address] [facility] [address] [place], [place] [id number] 11/19/2023 Alok Oglesby Type 2 diabetes sangeeta itus without complications E11.9 ; Essential hypertension I10 and Mild intermittent asthmatic bronchitis without complication J45.20 [facility] [address] [facility] [address] [facility] [address] [place], [place] [id number] 01/21/2024 Alok Oglesby Essential hypertensi on I10 ; Type 2 diabetes mellitus without complications E11.9 and Vitamin B12 deficiency E53.8 [facility] [address] [facility] 36 [facility] [address] [place], [place] [id number] 05/26/2024 Alok Oglesby Essential hypertensi on I10 ; Coronary artery disease involving [place] coronary artery of [place] heart without angina pectoris I25.10 ; Type 2 diabetes mellitus without complications E11.9 and Benign prostatic disease N42.9 [facility] [address] [place], [place] [id number] 11/21/2023 Alok Oglesby Dyslipidemia E78.5 a nd Type 2 diabetes mellitus without complications E11.9 [facility] [address] [place], [place] [id number] 01/22/2024 Alok Oglesby Essential hypertensi on I10 ; Mixed hyperlipidemia E78.2 and Benign prostatic disease N42.9 [facility] [address] [place], [place] [id number] 11/20/2023 Alok Oglesby [facility] [address] [place], [place] [id number] 11/20/2023 Alok Oglesby [facility] [address] [place], [place] [id number] 01/23/2024 Alok Oglesby [facility] [address] [place], [place] [id number] 01/25/2024 Alok Oglesby ASSESSMENTS Encounter Date Diagnosis Assessment Notes Treatment Notes Treatment Clinical Notes 11/19/2023 Type 2 diabetes mellitus without complications (ICD-10 - E11.9) 11/19/2023 Essential hypertension (ICD-10 - I10) 11/21/2023 Type 2 diabetes mellitus without complications (ICD-10 - E11.9) 11/21/2023 Dyslipidemia (ICD-10 - E78.5) 01/21/2024 Type 2 diabetes mellitus without complications (ICD-10 - E11.9) 01/21/2024 Essential hypertension (ICD-10 - I10) continue current therapy 01/22/2024 Essential hypertension (ICD-10 - I10) 05/26/2024 Coronary artery disease involving [place] coronary artery of [place] heart without angina pectoris (ICD-10 - I25.10) 05/26/2024 Essential hypertension (ICD-10 - I10) 05/26/2024 Type 2 diabetes mellitus without complications (ICD-10 - E11.9) 01/22/2024 Mixed hyperlipidemia (ICD-10 - E78.2) 01/21/2024 Vitamin B12 deficiency (ICD-10 - E53.8) 11/19/2023 Mild intermittent asthmatic bronchitis without complication (ICD-10 - J45.20) 01/22/2024 Benign prostatic disease (ICD-10 - N42.9) 05/26/2024 Benign prostatic disease (ICD-10 - N42.9) PLAN OF TREATMENT Next Appt Details Provider Name:Alok Silvamarissa er, 09/01/2024 11:30:00 AM, [address] [facility], [address], [place], [place], [id number], Insurance Providers Payer Name Payer Address Payer Phone Subscriber Number Group Number Insured Name Patient Relationship to Insured Coverage Start Date Coverage End Date [employer] (MEDICAR E) [address] [address] [place] [address] [phone] [id number] JOSEPH Self - patient is the insured MEDICATIONS ADMINISTERED Medication Instructions Date of Administration Dosage Notes allergy 10/19/2007 0.05 MEDICAL (GENERAL) HISTORY Medical History History ICD Code HTN type 2 diabetes arthritis allergy shots hemorrhoids Esophageal reflux BPH Shingrix 2 shots, second was 08/2020 Covid vaccine x2 Dec 2020 Surgical History Surgery Date(Month/Year) right leg break esophageal dilatation nose surgery heart cath 3-2-10 rotator cuff tear repair, R shoulder 05/19 015 Hospitalization History Reason Date(Month/Year) none
--- OUTSIDE RECORDS SUMMARY | 2024-08-22 10:53 | XMS_ITS | Encounter Summary ---
Author Organization [facility] Address [address] [place] [address] Care Team Providers Care Beauty Consultant Name Role Phone Unavailable Primary Care Provider Unavailabl e Encounter Details Date Type Department Care Team (Late st Contact Info) Description 05/04/2015 [facility] Vitals Encounter [facility] [address] [place] [address] Provider, MD Wolf [address] [place] [address] Social History Tobacco Use Types Packs/Day Years Used Date Smoking Tobacco: Never Assessed Sex and Gender Information Value Date Recorded Sex Assigned at Not on file Legal Sex Male 6:44 PM EDT Gender Identity Not on file Sexual Orientation Not on file documented as of this encounter Last Filed Vital Signs Vital Sign Reading Time Taken Comments Blood Pressure - - Pulse - - Temperature - - Respiratory Rate - - Oxygen Saturation - - Inhaled Oxygen Concentration - - Weight 108 kg (239 lb) 05/04/2015 7:25 AM EDT Height 177.8 cm (5' 10 ) 05/04/2015 7:25 AM EDT Body Mass Index 34.29 05/04/2015 7:25 AM EDT documented in this encounter Plan of Treatment Not on file documented as of this encounter Visit Diagnoses Not on filedocumented in this encounter
--- OUTSIDE RECORDS SUMMARY | 2024-08-22 10:53 | XMS_ITS | Encounter Summary ---
Author Organization [facility] Address [address] [place] [address] Care Team Providers Care [facility] Former [facility] Name Role Phone Unavailable Primary Care Provider Unavailabl e Encounter Details Date Type Department Care Team (Late st Contact Info) Description 06/15/2015 [facility] Vitals Encounter [facility] [address] [place] [address] Provider, MD Wolf [address] [place] [address] Social History Tobacco Use Types Packs/Day [...] Mass Index 34.29 06/15/2015 1:45 PM EDT documented in this encounter Plan of Treatment Not on file documented as of this encounter Visit Diagnoses Not on filedocumented in this encounter
== END 2024-08-22 23:59 | disposition home or self-care (01) ==
LOC: RT 10:50
PROVIDERS: PCP Family Medicine; Visit Provider Internal Medicine
DX: R42 Dizziness and giddiness (principal); I65.23 Occlusion and stenosis of bilateral carotid arteries
CPT/HCPCS: 93880

== ENCOUNTER 2025-04-15 08:11 | Outpatient (CLI) | payer MEDICARE, SELFPAY ==
--- OUTSIDE RECORDS SUMMARY | 2024-09-01 07:30 | XMS_ITS ---
Author Organization [facility] Address [address] [place] [id number] Care Team Providers Care Engine Assembler Name Role Phone Alok Oglesby Primary Care Provider [phone] Allergies Allergen (clinical drug ingredient) Drug/Non Drug Allergy documented on EMR Reaction Allergy Type Onset Date Status Mold Unknown Allergy Active Results Component Value Reference Range Notes Glycohemoglobin A1c (in hous e) Reviewed date:09/02/2024 10:11:44 AM Interpretation: Performing Lab: Notes/Report: glycohemoglobin 8.3% 5 - 6.5 % P-Comprehensive Metabolic Pa taiwo (CMP) Reviewed date:09/03/2024 03:25:05 PM Interpretation:non-fasting gluc 142 Performing Lab: Notes/Report: Test performed by [facility] , [address], [place] [address] Alexandre Reveles MD, Flying Shear Operator CLIA: [id number] Sodium 139 135-145 mmol/L Potassium 4.3 3.5-5.3 mmol/L Chloride 105 97-108 mmol/L CO2 23 22-32 mmol/L Glucose 142 65-99 mg/dL BUN 17 8-23 mg/dL Creatinine 1.27 0.70-1.30 mg/dL Calcium 9.4 8.6-10.4 mg/dL eGFR by Creatinine 60 >59 mL/min/1.73m2 Protein 6.6 6.0-8.3 g/dL Albumin 4.3 3.5-5.3 g/dL Alkaline Phosphatase 84 40-129 IU/L ALT (SGPT) 46 <5-55 IU/L AST (SGOT) 38 <5-46 IU/L Bilirubin, Total 0.4 <0.2-1.2 mg/dL A/G Ratio 1.9 1.1-2.5 REASON FOR VISIT 3 month check, Needs labs, diabetic eye exam, & flu vaccine Medications Medication SIG (Take, Route, Frequency, Duration) Notes Start Date End Date Status Mantilla Colon Health - 1 cap(s) orally once a day Active Coenzyme Q-10 100 MG 1 cap(s) orally onc e a day 09/26/2017 Active Glucosamine Chondroitin MSM - 1 tab(s) orally bid Active Levocetirizine Dihydrochloride 5 MG 1 tab(s) orally once a day (in the evening) Active Flonase Allergy Relief 50 MCG/ACT 1 spray(s) intranasally once a day 12/21/2016 Active Xarelto 20 MG 1 tablet with food Orally Once a day; Duration: 30 day(s) Active Metoprolol Succinate 25 MG 1 capsule Ora lly Once a day; Duration: 30 day(s) Active Ventolin HFA 108 (90 Base) MCG/ACT 2 puff(s) inhaled 4 times a day; Duration: 30 day(s) 12/09/2016 Active Metoprolol Succinate ER 50 MG 1 tablet Orally At Bed Time Active Fish Oil 1000 MG 1 cap(s) orally once daily Active Trulicity 3 MG/0.5ML INJECT 3MG (1 PEN) UNDER THE SKIN ONCE A WEEK DIRECTED; Duration: 84 Active Irbesartan 300 MG 1 tablet Orally Once a day; Duration: 30 day(s) Active Celecoxib 200 MG 1 cap(s) orally once a day; Duration: 90 days Active Esomeprazole Magnesium 40 MG 1 cap(s) or ally once a day; Duration: 90 days Active metFORMIN HCl 500 MG TAKE 1 TABLET TWICE DAILY orally 2 times a day; Duration: 90 days Active Nystatin-Triamcinolone 446086-3.1 UNIT/GM 1 application Externally Twice a day 05/22/2023 Active Invokana 300 MG TAKE 1 TABLET EVERY DAY; Duration: 90 Active Atorvastatin Calcium 40 MG 1 tab(s) oral ly once a day; Duration: 30 day(s) Active Fenofibrate 145 MG TAKE 1 TABLET EVERY DAY; Duration: 90 Active Glimepiride 4 MG 1 tablet with breakf ast or the first main meal of the day Orally Once a day; Duration: 90 days 05/26/2024 Active Vital Signs Blood pressure systolic 154 mm Hg 09/01/20 24 Blood pressure diastolic 84 mm Hg 024 Heart Rate 63 /min 09/01/2024 Height 68.80 in 09/01/2024 Weight 207.8 lbs 09/01/2024 BMI 30.86 kg/m2 09/01/2024 Encounters Encounter Location Date Provider Diagnosis [facility] [address] [facility] [address] [facility] [address] [place] [phone] 09/01/2024 Alok Oglesby Essential hypertensi on I10 ; Type 2 diabetes mellitus without complications E11.9 and Vitamin B12 deficiency E53.8 Assessments Encounter Date Diagnosis (ICD Code) Assessment Notes Treatment Notes Treatment Clinical Notes Section Notes 09/01/2024 Essential hypertension (ICD-10 - I10) 09/01/2024 Type 2 diabetes mellitus without complications (ICD-10 - E11.9) 09/01/2024 Vitamin B12 deficiency (ICD-10 - E53.8) Plan Of Treatment Next Appt Details Follow Up: 3 Months, Reason: Provider Name:Alok Butt er, 08/14/2025 09:45:00 AM, [address] [facility] [address] [facility], [address], [place], [id number], Progress Notes * KACI JOSEPHDOB: [birth year] (69 yo M)Acc No.[id number]:09/01/2024 Progress Notes Patient: KACI HAYES Provider: Alok Oglesby M.D. :1955 A ge:68 Y S ex:Male Date:09/01/2024 Address:[address] [place], [place] [id number] Subjective: * Chief Complaints: * 1 . 3 month check. 2. Needs labs, diabetic eye exam, & flu vaccine. * HPI: C ardiology: The patient is here for a check up on Hypertension and Diabetes. Note cardiology change to Irbesartan 300mg. Pt states he doing good and denies any new concerns. Pt is not fasting. Denies : Chest Pain. D enies : Short of Breath. D enies : Dizziness. D enies : Palpitations. * ROS: D ERMATOLOGY: no R esther. n o H checo. G ASTROENTEROLOGY: no N ausea. n o V omiting. n o D iarrhea.? U ROLOGY: no D ifficulty urinating. n o B lood in urine. * Medical History: H [place], Type 2 diabetes, Arthritis, Allergy shots, Hemorrhoids, Esophageal reflux, BPH, Shingrix 2 shots, second was 08/2020, Covid vaccine x2 Dec 2020. * Surgical History: r ight leg break , esophageal dilatation , nose surgery , heart cath 11-16-09, rotator cuff tear repair, R shoulder 05/2015. * Hospitalization/Major Diagno stic Procedure: n one . * Family History: F ather: 70 yrs, heart dx.. M other: alive 51 yrs, DM. P aternal Grand Father: . P aternal Grand Mother: . M aternal Grand Father: . M aternal Grand Mother: . 1 brother(s) . 2 son(s) . . * Social History: C URRENT TOBACCO USE S moking Status: Patient does NOT smoke. C affeine: yes, frequency:. Exercise: no. Home smoke detector use: yes. Marital Status: . New since last visit: none. Past smoking status: no. Recreational drug use: no. Alcohol: socially, Type: , Frequency: ,Years: , Determination:. Sexually active: yes. * Medications: T ophelia Irbesartan 300 MG Tablet 1 tablet Orally Once a day , Taking Xarelto 20 MG Tablet 1 tablet with food Orally Once a day , Taking Metoprolol Succinate 25 MG Capsule ER 24 Hour Sprinkle 1 capsule Orally Once a day , Taking Metoprolol Succinate ER 50 MG Tablet Extended Release 24 Hour 1 tablet Orally At Bed Time , Taking Fish Oil 1000 MG Capsule 1 cap(s) orally once daily , Taking Ventolin HFA 108 (90 Base) MCG/ACT Aerosol Solution 2 puff(s) inhaled 4 times a day , Taking Glucosamine Chondroitin MSM - Tablet 1 tab(s) orally bid , Taking Levocetirizine Dihydrochloride 5 MG Tablet 1 tab(s) orally once a day (in the evening) , Taking Flonase Allergy Relief 50 MCG/ACT Suspension 1 spray(s) intranasally once a day , Taking Mantilla Colon Health - Capsule 1 cap(s) orally once a day , Taking Coenzyme Q-10 100 MG Capsule 1 cap(s) orally once a day , Taking Atorvastatin Calcium 40 MG Tablet 1 tab(s) orally once a day , Taking Nystatin-Triamcinolone 383675-0.1 UNIT/GM Cream 1 application Externally Twice a day , Taking Invokana 300 MG Tablet TAKE 1 TABLET EVERY DAY , Taking Fenofibrate 145 MG Tablet TAKE 1 TABLET EVERY DAY , Taking Glimepiride 4 MG Tablet 1 tablet with breakfast or the first main meal of the day Orally Once a day , Taking Celecoxib 200 MG Capsule 1 cap(s) orally once a day , Taking Esomeprazole Magnesium 40 MG Capsule Delayed Release 1 cap(s) orally once a day , Taking metFORMIN HCl 500 MG Tablet TAKE 1 TABLET TWICE DAILY orally 2 times a day , Taking Trulicity 3 MG/0.5ML Solution Pen-injector INJECT 3MG (1 PEN) UNDER THE SKIN ONCE A WEEK DIRECTED , Medication List reviewed and reconciled with the patient * Allergies: M old. Objective: * Vitals: W t:207.8, Temp:98.6, BP:154/84, HR:63, Nurse:TIFFANIE, Ht: 68.80, Repeat BP:130/70, BMI:30.86. * Examination: G eneral Examination: General Appearance: N AD. H EENT: s ome upper lid ptosis, and lower?. O ral cavity: n o lesions, mucosa moist and WNL, no erythema. N seven: ?supple, no lymphadenopathy. C hest: n ormal shape and expansion. H eart: R SR, no ectopics heard. L ungs: g ood air entry bilaterally. A bdomen: soft and nontender, no organomegaly or masses. N eurologic Exam: I ntact, gait normal. S kin: n ormal, no rash. P eripheral pulses: n ormal . B ack: normal, mild dorsal kyphosis. Extremities: n o leg edema. Assessment: * Assessment: 1. E ssential hypertension - I10 (Primary) 2 . T ype 2 diabetes mellitus without complications - E11.9 3 . V itamin B12 deficiency - E53.8 Plan: * Treatment: Value Reference Range A /G Ratio 1.9 1.1-2.5 - * A lbumin 4.3 3.5-5.3 - g/dL * A lkaline Phosphatase 84 40-129 - IU/L * A LT (SGPT) 46 <5-55 - IU/L * A ST (SGOT) 38 <5-46 - IU/L * B ilirubin, Total 0.4 <0.2-1.2 - mg/dL * B UN 17 8-23 - mg/dL * C alcium 9.4 8.6-10.4 - mg/dL * C hloride 105 97-108 - mmol/L * C O2 23 22-32 - mmol/L * C reatinine 1.27 0.70-1.30 - mg/dL * G lucose 142 H 65-99 - mg/dL * P otassium 4.3 3.5-5.3 - mmol/L * S odium 139 135-145 - mmol/L * P rotein 6.6 6.0-8.3 - g/dL * e GFR by Creatinine 60 >59 - mL/min/1.73m2 * Merlyn Multani 09/03/2024 3: 24:56 PM > , Left voicemail informing of normal lab results 2.?Type 2 diabetes mellitus without complications?LAB: Glycohemoglobin A1c (in house) (Collection Date & Time - 09/01/2024)* Value Reference Range g lycohemoglobin 8.3% 5 - 6.5 % * Tracy Joseph 09/01/2024 12:28: 41 PM > , Provider reviewed results while patient in office. * Procedure Codes: G 2211 Complex e/[place], [address] CAPILLARY BLOOD DRAW, [address] GLYCATED HEMOGLOBIN TEST, Modifiers: QW * Follow Up: 3 Months * Images: Billing Information: * Visit Code: 67850 Office Visit, Est Pt., Level 4. * Procedure Codes: G2211 Complex e/[place]. [address] CAPILLARY BLOOD DRAW. [address]1990 GLYCATED HEMOGLOBIN TEST. Modifiers: QW * Electronic signature of Alok Oglesby MD on 04/15/2025 at 08:15 AM EDT Sign off status: Pending * Provider: Alok Oglesby M.D. Date: 11/02/2023 Generated for Chloe white/Jas/eTransmitting on: 0 04/15/2025 08:15 AM EDT History and Physical Notes * HPI (History of Present Illness) Category Sub-Category Detail Notes Category Not es Cardiology Short of Breath Chest Pain Palpitations Dizziness Examination Category Sub-Category Detail Notes Category Not es General Examination HEENT: some upper lid ptosis , and lower? Heart: RSR, no ectopics hea [...]
--- OUTSIDE RECORDS SUMMARY | 2024-12-05 06:00 | XMS_ITS ---
Author Organization [facility] Address [address] [place] [phone] Care Team Providers Care Power Saw Operator Name Role Phone Alok Oglesby Primary Care Provider Allergies Allergen (clinical drug ingredient) Drug/Non Drug Allergy documented on EMR Reaction Allergy Type Onset Date Status Mold Unknown Allergy Active Results Component Value Reference Range Notes CBC Venipuncture (in house) Reviewed date:12/05/2024 12:24:16 PM Interpretation: Performing Lab: Notes/Report: wbc 6.3 3.5 - 10 lymph 22.9% 15 - 50 mid 5.4% 2 - 15 gran 71.7% 35 - 80 rbc 5.25 3.5 - 5.5 hgb 14.4 11.5 - 16.5 hct 43.8 35 - 55 mcv 83.4 75 - 100 mch 27.5 25 - 35 mchc 32.9 31 - 38 platlet 223 100 - 400 Glycohemoglobin A1c (in hous e) Reviewed date:12/05/2024 12:24:25 PM Interpretation:7.7% Performing Lab: Notes/Report: 7.7% glycohemoglobin 7.7% 5 - 6.5 % P-Comprehensive Metabolic Pa taiwo (CMP) Reviewed date:12/10/2024 05:27:27 PM Interpretation:Normal Performing Lab: Notes/Report: Test performed by [facility] [address] [place] [address] , [address], [place] [address] Alexandre Reveles MD, Cafeteria Operator CLIA: [id number] Sodium 141 135-145 mmol/L Potassium 4.2 3.5-5.3 mmol/L Chloride 106 97-108 mmol/L CO2 24 22-32 mmol/L Glucose 108 65-99 mg/dL BUN 18 8-23 mg/dL Creatinine 1.10 0.70-1.30 mg/dL Calcium 9.3 8.6-10.4 mg/dL eGFR by Creatinine 72 >59 mL/min/1.73m2 Protein 6.6 6.0-8.3 g/dL Albumin 4.4 3.5-5.3 g/dL Alkaline Phosphatase 85 40-129 IU/L ALT (SGPT) 35 <5-55 IU/L AST (SGOT) 30 <5-46 IU/L Bilirubin, Total 0.5 <0.2-1.2 mg/dL A/G Ratio 2.0 1.1-2.5 P-Microalbumin/Creatinine, R andom Urine Sample Reviewed date:12/10/2024 05:27:27 PM Interpretation:Normal Performing Lab: Notes/Report: Test performed by [employer] [employer] [address] [place] [address] , [address], [place] [address] Alexandre Reveles MD, Cafeteria Operator CLIA: [id number] Albumin/Creatinine Ratio, Urine 4 0-30 ug/m g Microalbumin, Urine, Random 0.4 Creatinine, Urine 102.7 REASON FOR VISIT 3 month ckup Medications Medication SIG (Take, Route, Frequency, Duration) Notes Start Date End Date Status Fish Oil 1000 MG 1 cap(s) orally once daily Active Metoprolol Succinate ER 50 MG 1 tablet Orally At Bed Time Active Glucosamine Chondroitin MSM - 1 tab(s) orally bid Active Ventolin HFA 108 (90 Base) MCG/ACT 2 puff(s) inhaled 4 times a day; Duration: 30 day(s) 12/09/2016 Active Levocetirizine Dihydrochloride 5 MG 1 tab(s) orally once a day (in the evening) Active Esomeprazole Magnesium 40 MG TAKE 1 CAPS ULE EVERY DAY; Duration: 90 Active Trulicity 3 MG/0.5ML INJECT 3MG (1 PEN) UNDER THE SKIN EVERY WEEK; Duration: 84 Active Nystatin-Triamcinolone 849717-7.1 UNIT/GM 1 application Externally Twice a day 05/22/2023 Active Metoprolol Succinate 25 MG 1 capsule Ora lly Once a day; Duration: 30 day(s) Active Xarelto 20 MG 1 tablet with food Orally Once a day; Duration: 30 day(s) Active metFORMIN HCl 500 MG TAKE 1 TABLET TWICE DAILY orally 2 times a day; Duration: 90 days Active Glimepiride 4 MG TAKE 1 TABLET ONE TI ME DAILY WITH BREAKFAST OR THE FIRST MAIN MEAL OF THE DAY; Duration: 90 Active Fenofibrate 145 MG TAKE 1 TABLET EVERY DAY; Duration: 90 Active Celecoxib 200 MG TAKE 1 CAPSULE EVERY DAY; Duration: 90 Active Irbesartan 300 MG 1 tablet Orally Once a day; Duration: 30 day(s) Active Flonase Allergy Relief 50 MCG/ACT 1 spray(s) intranasally once a day 12/21/2016 Active Coenzyme Q-10 100 MG 1 cap(s) orally onc e a day 09/26/2017 Active Mantilla Colon Health - 1 cap(s) orally once a day Active Atorvastatin Calcium 40 MG 1 tab(s) oral ly once a day; Duration: 30 day(s) Active Invokana 300 MG TAKE 1 TABLET EVERY DAY; Duration: 90 Active Vital Signs Blood pressure systolic 130 mm Hg 12/06/19 25 Blood pressure diastolic 70 mm Hg 025 Heart Rate 64 /min 12/05/2024 Height 68.80 in 12/05/2024 Weight 207.6 lbs 12/05/2024 BMI 30.83 kg/m2 12/05/2024 Encounters Encounter Location Date Provider Diagnosis [facility] [address] [phone] 12/05/2024 Alok Oglesby Essential hypertensi on I10 ; 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 I25.10 ; Type 2 diabetes mellitus without complications E11.9 and Dermatitis L30.9 Assessments Encounter Date Diagnosis (ICD Code) Assessment Notes Treatment Notes Treatment Clinical Notes Section Notes 12/05/2024 Essential hypertension (ICD-10 - I10) Refill Nystatin/Triam cinolone cream for use on left chest rash 12/05/2024 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 (ICD-10 - I25.10) 12/05/2024 Type 2 diabetes mellitus without complications (ICD-10 - E11.9) 12/05/2024 Dermatitis (ICD-10 - L30.9) Plan Of Treatment Medication Medication Name Sig Start Date Stop Date Notes Nystatin-Triamcinolone 225870-9.1 UNIT/GM 1 application Externally Twice a day 05/22/2023 Treatment Notes Assessment Notes Essential hypertension Refill Nystatin/T riamcinolone cream for use on left chest rash Next Appt Details Follow Up: 4 Months, Reason: Provider Name:Alok Butt er, 08/14/2025 09:45:00 AM, [address], [address], [place], [place], [phone], Progress Notes * KACI JOSEPHDOB: [birth year] (69 yo M)Acc No.[id number]:12/05/2024 Progress Notes Patient: KACI HAYES Provider: Alok Oglesby M.D. :1955 A ge:69 Y S ex:Male Date:12/05/2024 Address:[address] [place] [address] [id number] Subjective: * Chief Complaints: * 1 . 3 month ckup. * HPI: C ardiology: The patient is here today for a check up on Hypertension, Hyperlipidemia, and Diabetes. Pt states he is doing good except for a rsh on his chest. Pt states this started over a month ago. Pt states the rash has spread to the left side of his chest and itches a lot. Pt states he has tried Hydrocortisone cream with some relief.. Pt is fasting. Denies : Chest Pain. D enies [...] shots, second was 08/2020, Covid vaccine x2 Nov/Dec 2020. * Surgical History: r ight leg break , esophageal dilatation , nose surgery , heart cath 3-2-10, rotator cuff tear repair, R shoulder 05/2015. * Hospitalization/Major Diagno stic Procedure: n one . * Family History: F ather: 70 yrs, heart dx.. M other: alive 52 yrs, DM. P aternal Grand Father: . [...] Determination:. Sexually active: yes. * Medications: T aking Xarelto 20 MG Tablet 1 tablet with [...] spray(s) intranasally once a day , Taking [employer] [facility] - Capsule 1 cap(s) orally once a day , Taking Coenzyme Q-10 100 MG Capsule 1 cap(s) orally once a day , Taking Atorvastatin Calcium 40 MG Tablet 1 tab(s) orally once a day , Taking Nystatin-Triamcinolone 923541-6.1 UNIT/GM Cream 1 application Externally Twice a day , Taking Invokana 300 MG Tablet TAKE 1 TABLET EVERY DAY , Taking metFORMIN HCl 500 MG Tablet TAKE 1 TABLET TWICE DAILY orally 2 times a day , Taking Fenofibrate 145 MG Tablet TAKE 1 TABLET EVERY DAY , Taking Glimepiride 4 MG Tablet TAKE 1 TABLET ONE TIME DAILY WITH BREAKFAST OR THE FIRST MAIN MEAL OF THE DAY , Taking Irbesartan 300 MG Tablet 1 tablet Orally Once a day , Taking Celecoxib 200 MG Capsule TAKE 1 CAPSULE EVERY DAY , Taking Trulicity 3 MG/0.5ML Solution Auto-injector INJECT 3MG (1 PEN) UNDER THE SKIN EVERY WEEK , Taking Esomeprazole Magnesium 40 MG Capsule Delayed Release TAKE 1 CAPSULE EVERY DAY , Medication List reviewed and reconciled with the patient * Allergies: M old. Objective: * Vitals: W t: 207.6, Temp: 98.5, BP: 130/70, HR: 64, Nurse: TIFFANIE, Ht: 68.80, BMI:30.83. * Examination: G eneral Examination: General Appearance: N AD. H EENT: u pper lid ptosis. O ral cavity: n o lesions, mucosa moist and WNL, no erythema. N seven: s upple, no lymphadenopathy. C hest: n ormal shape and expansion. H eart: R SR, no ectopics heard. L ungs: g ood air entry bilaterally. A bdomen: soft and nontender, no organomegaly or masses. N eurologic Exam: I ntact, gait normal. S kin: r esther of left upper chest, erythema a few excoriations, 8cm area. P eripheral pulses: n ormal . B ack: normal, mild dorsal kyphosis. E xtremities: n o leg edema. Assessment: * Assessment: 1. E ssential hypertension - I10 (Primary) 2 . C oronary artery disease involving northwestern 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 - I25.10 3 .?Type 2 diabetes mellitus without complications - E11.9 4 . D ermatitis - L30.9 Plan: * Treatment: Value Reference Range A /G Ratio 2.0 1.1-2.5 - * A lbumin 4.4 3.5-5.3 - g/dL * A lkaline Phosphatase 85 40-129 - IU/L * A LT (SGPT) 35 <5-55 - IU/L * A ST (SGOT) 30 <5-46 - IU/L * B ilirubin, Total 0.5 <0.2-1.2 - mg/dL * B UN 18 8-23 - mg/dL * C alcium 9.3 8.6-10.4 - mg/dL * C hloride 106 97-108 - mmol/L * C O2 24 22-32 - mmol/L * C reatinine 1.10 0.70-1.30 - mg/dL * G lucose 108 H 65-99 - mg/dL * P otassium 4.2 3.5-5.3 - mmol/L * S odium 141 135-145 - mmol/L * P rotein 6.6 6.0-8.3 - g/dL * e GFR by Creatinine 72 >59 - mL/min/1.73m2 * Merlyn Multani 12/10/2024 5:2 7:04 PM >Patient informed of normal results. ?LAB: CBC Venipuncture (in house) (Collection Date & Time - 12/05/2024)* Value Reference Range w bc 6.3 3.5 - 10 * l ymph 22.9% 15 - 50 * m id 5.4% 2 - 15 * g ran 71.7% 35 - 80 * r bc 5.25 3.5 - 5.5 * h gb 14.4 11.5 - 16.5 * h ct 43.8 35 - 55 * m cv 83.4 75 - 100 * m ch 27.5 25 - 35 * m chc 32.9 31 - 38 * p latlet 223 100 - 400 * Merlyn Multani 12/05/2024 10: 22:45 AM > Provider reviewed results while patient in office. Notes: Refill Nystatin/Triamcinolone cream for use on left chest rash??2.?Type 2 diabetes mellitus without complications?LAB: P-Microalbumin/Creatinine, Random Urine Sample (Collection Date & Time - 12/05/2024 10:07 AM)?Normal* Value Reference Range A lbumin/Creatinine Ratio, Urine 4 0-30 - ug /mg * C reatinine, Urine 102.7 - mg/dL * M icroalbumin, Urine, Random 0.4 - mg/dL * Merlyn Multani 12/10/2024 5:2 7:04 PM >Patient informed of normal results. ?LAB: Glycohemoglobin A1c (in house) (Collection Date & Time - 12/05/2024)? 7.7%* Value Reference Range g lycohemoglobin 7.7% 5 - 6.5 % * Merlyn Multani 12/05/2024 10: 21:46 AM > Provider reviewed results while patient in office. * Procedure Codes: G 2211 Complex e/[place] [address] CBC WITH AUTO DIFF, 70707 GLYCATED HEMOGLOBIN TEST, Modifiers: QW , 3051F HG A1C>EQUAL 7.0%<8.0%, G8752 MOST RECENT SYSTOLIC BP < 140MM HG, G8754 MOST RECENT DIASTOLIC BP < 90MM HG * Follow Up: 4 Months * Images: Billing Information: * Visit Code: 70510 Office Visit, Est Pt., Level 4. * Procedure Codes: G2211 Complex e/[place]. [address] CBC WITH AUTO DIFF. 18707 GLYCATED HEMOGLOBIN TEST. Modifiers: QW 3051F HG A1C>EQUAL 7.0%<8.0%. G8752 MOST RECENT SYSTOLIC BP < 140MM HG. G8754 MOST RECENT DIASTOLIC BP < 90MM HG. * Electronic signature of Alok Oglesby MD on 04/15/2025 at 08:15 AM EDT Sign off status: Pending * Provider: Alok Oglesby M.D. Date: 0 12/05/2024 Generated for Chloe white/Jas/Antonetteitting on: 0 04/15/2025 08:15 AM EDT History and Physical Notes * HPI (History of Present Illness) Category Sub-Category Detail Notes Category Not es Cardiology Short of Breath Chest Pain Palpitations Dizziness Examination Category Sub-Category Detail Notes Category Not es General Examination HEENT: upper lid ptosis Heart: RSR, no ectopics hea rd Lungs: good air entry bilat erally Abdomen: soft and nontender, no organomegaly or masses Extremities: no leg edema General Appearance: NAD Skin: rash of left upper c hest, erythema a few excoriations, 8cm area Neurologic Exam: Intact, gait normal Neck: supple, no lymphaden opathy Oral cavity: no lesions, mucosa m oist and WNL, no erythema Peripheral pulses: normal Back: normal, mild dorsal kyphosis Chest: normal shape and exp ansion
--- OUTSIDE RECORDS SUMMARY | 2025-04-10 07:30 | XMS_ITS ---
Author Organization [facility] Address [address] [place] [id number] Care Team Providers Care Machine Accountant Name Role Phone Alok Oglesby Primary Care Provider [phone] Allergies Allergen (clinical drug ingredient) Drug/Non Drug Allergy documented on EMR Reaction Allergy Type Onset Date Status Mold Unknown Allergy Active Results Component Value Reference Range Notes P-Comprehensive Metabolic Pa taiwo (CMP) (Not yet reviewed by provider) Interpretation: Performing Lab: Notes/Report: Test performed by [facility] , [address], [place] [address] Alexandre Reveles MD, Golf Player Assistant CLIA: [id number] Sodium 140 135-145 mmol/L Potassium 4.1 3.5-5.3 mmol/L Chloride 105 97-108 mmol/L CO2 23 20-32 mmol/L Glucose 74 65-99 mg/dL BUN 15 8-23 mg/dL Creatinine 1.06 0.70-1.30 mg/dL Calcium 9.2 8.6-10.4 mg/dL eGFR by Creatinine 75 >59 mL/min/1.73m2 Protein 6.3 6.0-8.3 g/dL Albumin 4.2 3.5-5.3 g/dL Alkaline Phosphatase 98 40-129 IU/L ALT (SGPT) 55 <5-55 IU/L AST (SGOT) 43 <5-46 IU/L Bilirubin, Total 0.6 <0.2-1.2 mg/dL A/G Ratio 2.0 1.1-2.5 P-PSA (Not yet reviewed by mignon cohen) Interpretation: Performing Lab: Notes/Report: Test performed by [facility] [address] [place] [address] , [address], [place] [address] Alexandre Reveles MD, Golf Player Assistant CLIA: [id number] PSA 0.20 <4.00 ng/mL Please note this is an ultrasensitive PSA assay with a lower limit of detection of 0.014 ng/mL. This test is performed by the [employer] ECLIA methodology. Values obtained with different assay methods or kits cannot be directly compared. P-Microalbumin/Creatinine, R andom Urine Sample (Not yet reviewed by provider) Interpretation: Performing Lab: Notes/Report: Test performed by [facility] [address] [place] [address] , [address], [place] [address] Alexandre Reveles MD, Golf Player Assistant CLIA: [id number] Albumin/Creatinine Ratio, Urine 7 0-30 ug/m g Microalbumin, Urine, Random 0.9 Creatinine, Urine 125.0 Glycohemoglobin A1c (in hous e) Reviewed date:04/10/2025 12:16:16 PM Interpretation: Performing Lab: Notes/Report: glycohemoglobin 7.0% 5 - 6.5 % REASON FOR VISIT 4 month check, Patient is due for Diabetic eye exam, and KED (need uACR and eGFR), Also needs labs with PSA Medications Medication SIG (Take, Route, Frequency, Duration) Notes Start Date End Date Status Celecoxib 200 MG TAKE 1 CAPSULE EVERY DAY; Duration: 90 Active Irbesartan 300 MG TAKE 1 TABLET ONE TI ME DAILY; Duration: 60 Active Esomeprazole Magnesium 40 MG TAKE 1 CAPSULE EVERY DAY; Duration: 90 Active Glimepiride 4 MG 1 tablet with breakfast or the first main meal of the day Orally Once a day; Duration: 90 days Active Fenofibrate 145 MG TAKE 1 TABLET EVERY DAY; Duration: 90 Not-Taking Nystatin-Triamcinolone 722618-4.1 UNIT/GM 1 application Externally Twice a day 05/22/2023 Active Atorvastatin Calcium 20 MG 1 tab(s) oral ly once a day; Duration: 30 days Active Invokana 300 MG TAKE 1 TABLET EVERY DAY; Duration: 90 Active metFORMIN HCl 500 MG TAKE 1 TABLET TWICE DAILY orally 2 times a day; Duration: 90 days Active Trulicity 3 MG/0.5ML INJECT 3MG (1 PEN) UNDER THE SKIN EVERY WEEK; Duration: 84 Active Glucosamine Chondroitin MSM - 1 tab(s) orally bid Active Levocetirizine Dihydrochloride 5 MG 1 tab(s) orally once a day (in the evening) Active Flonase Allergy Relief 50 MCG/ACT 1 spray(s) intranasally once a day 12/21/2016 Active eTapestry Health - 1 cap(s) orally once a day Active Coenzyme Q-10 100 MG 1 cap(s) orally onc e a day 09/26/2017 Active Fish Oil 1000 MG 1 cap(s) orally once daily Active Ventolin HFA 108 (90 Base) MCG/ACT 2 puff(s) inhaled 4 times a day; Duration: 30 day(s) 12/09/2016 Active Xarelto 20 MG 1 tablet with food Orally Once a day; Duration: 30 day(s) Active Metoprolol Succinate 25 MG 1 capsule Ora lly Once a day; Duration: 30 day(s) Active Metoprolol Succinate ER 50 MG 1 tablet Orally At Bed Time Active amLODIPine Besylate 2.5 MG 1 tablet Oral ly Once a day Active Vital Signs Blood pressure systolic 140 mm Hg 04/10/20 25 Blood pressure diastolic 80 mm Hg 025 Heart Rate 60 /min 04/10/2025 Height 68.80 in 04/10/2025 Weight 203.0 lbs 04/10/2025 BMI 30.15 kg/m2 04/10/2025 Encounters Encounter Location Date Provider Diagnosis [facility] [address] [id number] 04/10/2025 Alok Oglesby Type 2 diabetes sangeeta itus without complications E11.9 ; Mixed hyperlipidemia E78.2 ; Vitamin B12 deficiency E53.8 ; Essential hypertension I10 ; Benign prostatic disease N42.9 ; Weakness of right hand R29.898 and History of double vision Z86.69 Assessments Encounter Date Diagnosis (ICD Code) Assessment Notes Treatment Notes Treatment Clinical Notes Section Notes 04/10/2025 Type 2 diabetes mellitus without complications (ICD-10 - E11.9) 04/10/2025 Mixed hyperlipidemia (ICD-10 - E78.2) 04/10/2025 Vitamin B12 deficiency (ICD-10 - E53.8) 04/10/2025 Essential hypertension (ICD-10 - I10) 04/10/2025 Benign prostatic disease (ICD-10 - N42.9) 04/10/2025 Weakness of right hand (ICD-10 - R29.898) 04/10/2025 History of double vision (ICD-10 - Z86.69) Plan Of Treatment Pending Test Test Name Order Date CTA : Neck 04/10/2025 CTA : Head 04/10/2025 P-Comprehensive Metabolic Panel (CMP) P-PSA 04/10/2025 P-Microalbumin/Creatinine, Random Urine Sample 04/10/2025 Next Appt Details Follow Up: 4 Months, Reason: Provider Name:Alok Butt er, 08/14/2025 09:45:00 AM, [address], [address], [place], [phone], Progress Notes * KACI JOSEPHDOB: [birth year] (69 yo M)Acc No.[id number]:04/10/2025 Progress Notes Patient: KACI HAYES Provider: Alok Oglesby M.D. :1955 A ge:69 Y S ex:Male Date:04/10/2025 Address:[address] [place] [address], [place], [id number] Subjective: * Chief Complaints: * 1 . 4 month check. 2. Patient is due for Diabetic eye exam, and KED (need uACR and eGFR). 3. Also needs labs with PSA. * HPI: C ardiology: The patient is here for a check up on Hypertension and Diabetes. Pt states he is has had a couple episodes when sitting in his chair his right arm will go numb and tingly. Pt states he is also having some pain in his lower legs. Pt states he has an abrasion of the right ankle where a piece of fire wood fell on his leg. Pt states he is fasting today. Denies : Chest Pain. D enies : Short of Breath. D enies : Dizziness. D enies : Palpitations. O pthalmology: Had recent eye exam, [facility]. * ROS: D ERMATOLOGY: no R esther. [...] dilatation , nose surgery , heart cath --, rotator cuff tear repair, R shoulder 05/2015. [...] Sexually active: yes. * Medications: T aking amLODIPine Besylate 2.5 MG Tablet 1 tablet Orally Once a [...] spray(s) intranasally once a day , Taking Official Limited Virtual Colon Health - Capsule 1 cap(s) orally once a day , Taking Coenzyme Q-10 100 MG Capsule 1 cap(s) orally once a day , Taking Atorvastatin Calcium 20 MG Tablet 1 tab(s) orally once a day , Taking Invokana 300 MG Tablet TAKE 1 TABLET EVERY DAY , Taking metFORMIN HCl 500 MG Tablet TAKE 1 TABLET TWICE DAILY orally 2 times a day , Taking Trulicity 3 MG/0.5ML Solution Auto-injector INJECT 3MG (1 PEN) UNDER THE SKIN EVERY WEEK , Taking Nystatin-Triamcinolone 740291-1.1 UNIT/GM Cream 1 application Externally Twice a day , Taking Irbesartan 300 MG Tablet TAKE 1 TABLET ONE TIME DAILY , Taking Celecoxib 200 MG Capsule TAKE 1 CAPSULE EVERY DAY , Taking Esomeprazole Magnesium 40 MG Capsule Delayed Release TAKE 1 CAPSULE EVERY DAY , Taking Glimepiride 4 MG Tablet 1 tablet with breakfast or the first main meal of the day Orally Once a day , Not-Taking Fenofibrate 145 MG Tablet TAKE 1 TABLET EVERY DAY , Medication List reviewed and reconciled with the patient * Allergies: M old. Objective: * Vitals: W t: 203.0, Temp: 98.1, BP: 140/80, HR: 60, O2 Sat: 98% on RA, Nurse: TIFFANIE, Ht: 68.80, Repeat BP: 132/70, BMI:30.15. * Examination: G eneral Examination: General Appearance: [...] masses. N eurologic Exam: I ntact, gait normal, hand cook camp equal, median, radial, ulnar strength intact. S kin: r esther of left upper chest, erythema a few excoriations, 8cm area.?Peripheral pulses: n ormal . B ack: normal, mild dorsal kyphosis. E xtremities: n o leg edema. Healing abrasion of right medial ankle. Assessment: * Assessment: 1. T ype 2 diabetes mellitus without complications - E11.9 (Primary) 2 . M ixed hyperlipidemia - E78.2 3 . V itamin B12 deficiency - E53.8 4 . E ssential hypertension - I10 5 . B enign prostatic disease - N42.9 6 . W eakness of right hand - R29.898 7 . H istory of double vision - Z86.69 Plan: * Treatment: Value Reference Range A lbumin/Creatinine Ratio, Urine 7 0-30 - ug /mg * C reatinine, Urine 125.0 - mg/dL * M icroalbumin, Urine, Random 0.9 - mg/dL ?LAB: Glycohemoglobin A1c (in house) (Collection Date & Time - 04/10/2025)* Value Reference Range g lycohemoglobin 7.0% 5 - 6.5 % * Merlyn Multani 04/10/2025 12 :13:52 PM EDT > Provider reviewed results while patient in office. 2.?Essential hypertension?LAB: P-Comprehensive Metabolic Panel (CMP) (Collection Date & Time - 04/10/2025 11:22 AM)* Value Reference Range A /G Ratio 2.0 1.1-2.5 - * A lbumin 4.2 3.5-5.3 - g/dL * A lkaline Phosphatase 98 40-129 - IU/L * A LT (SGPT) 55 <5-55 - IU/L * A ST (SGOT) 43 <5-46 - IU/L * B ilirubin, Total 0.6 <0.2-1.2 - mg/dL * B UN 15 8-23 - mg/dL * C alcium 9.2 8.6-10.4 - mg/dL * C hloride 105 97-108 - mmol/L * C O2 23 20-32 - mmol/L * C reatinine 1.06 0.70-1.30 - mg/dL * G lucose 74 65-99 - mg/dL * P otassium 4.1 3.5-5.3 - mmol/L * S odium 140 135-145 - mmol/L * P rotein 6.3 6.0-8.3 - g/dL * e GFR by Creatinine 75 >59 - mL/min/1.73m2 3.?Benign prostatic disease?LAB: P-PSA (Collection Date & Time - 04/10/2025 11:22 AM)* Value Reference Range P SA 0.20 <4.00 - ng/mL 4.?Weakness of right hand?Imaging: CTA : Neck* Coreen Rojas 04/10/2025 01:1 4:45 PM EDT > faxed to [facility] Scheduling ?Imaging: CTA : Head* Coreen Rojas 04/10/2025 01:0 2:25 PM EDT > auth#[id number]; valid 04/10/2025-06/09/2025; CPT code 89389whssa on head and neckfaxed to [facility] Scheduling 5.?History of double vision?Imaging: CTA : Head* Coreen Rojas 04/10/2025 01:0 2:25 PM EDT > auth#[id number]; valid 04/10/2025-06/09/2025; CPT code [id number] on head and neckfaxed to [facility] Scheduling * Procedure Codes: 3 6416 CAPILLARY BLOOD DRAW, 83569 GLYCATED HEMOGLOBIN TEST, Modifiers: QW * Follow Up: 4 Months * Images: Billing Information: * Visit Code: 61723 Office Visit, Est Pt., Level 4. * Procedure Codes: 98317 CAPILLARY BLOOD DRAW. 16969 GLYCATED HEMOGLOBIN TEST. Modifiers: QW * Electronic signature of Alok Oglesby MD on 04/15/2025 at 08:14 AM EDT Sign off status: Pending * Provider: Alok Oglesby M.D. Date: 04/10/2025 Generated for Dellai ng/Caseyg/eTransmitting on: 04/15/2025 08:14 AM EDT History and Physical Notes * HPI (History of Present Illness) Category Sub-Category Detail Notes Category Not es Cardiology Short of Breath Chest Pain Palpitations Dizziness Opthalmology Had recent eye exam, [facility]. Examination Category Sub-Category Detail Notes Category Not es General Examination HEENT: upper lid ptosis Heart: RSR, no ectopics hea rd Lungs: good air entry bilat erally Abdomen: soft and nontender, no organomegaly or masses Extremities: no leg edema. Healin g abrasion of right medial ankle General Appearance: NAD Skin: rash of left upper c hest, erythema a few excoriations, 8cm area Neurologic Exam: Intact, gait normal, hand cook camp equal, median, radial, ulnar strength intact Neck: supple, no lymphaden opathy Oral cavity: no lesions, mucosa m oist and WNL, no erythema Peripheral pulses: normal Back: normal, mild dorsal kyphosis Chest: normal shape and exp ansion
--- NOTE | 2025-04-15 08:14 | CT_ITS ---
FINAL REPORT TECHNIQUE: Thin section axial images are obtained through the brain after intravenous contrast injection. Multiplanar reconstructions were obtained from the axial data. Exam was performed using dose reduction techniques such as automated exposure control, adjustment of the mA and kV according to patient size, and use of iterative reconstruction technique. CLINICAL HISTORY: WEAKNESS RT HAND/HX DOUBLE VISION hx of Less than 50% bilateral carotid stenoses on ultrasound 6 months ago FINDINGS: The intracerebral portions of the carotid arteries are patent. The anterior and middle cerebral arteries are patent. The posterior cerebral arteries arise from the basilar artery. They are patent. [place] is intact. The basilar artery is patent. The vertebral arteries are patent. There is no significant stenosis, aneurysm, or AVM. IMPRESSION: Unremarkable CT angiogram of the intracerebral vasculature. Reviewed, Interpreted and Dictated by Petra Avendaño MD Transcribed by Airam Calvillo Authenticated and [facility]
--- OUTSIDE RECORDS SUMMARY | 2025-04-15 08:14 | XMS_ITS | Patient Health Record ---
Author Organization [facility] Address [address] [place] [id number] Care Team Providers Care Vmware Systems Administrator Name Role Phone Alok Oglesby Primary Care [...] 142 Performing Lab: Notes/Report: Test performed by [facility] [address] [place] [address] , [address], [place] [address] Alexandre Reveles MD, Glove Former CLIA: [id number] Sodium 139 135-145 mmol/L Potassium 4.3 3.5-5.3 [...] 0.4 <0.2-1.2 mg/dL A/G Ratio 1.9 1.1-2.5 CBC Venipuncture (in house) Reviewed date:12/05/2024 12:24:16 [...] Interpretation:Normal Performing Lab: Notes/Report: Test performed by [facility] , [address], [place] [address] Alexandre Reveles MD, Glove Former CLIA: [id number] Sodium 141 135-145 mmol/L Potassium 4.2 3.5-5.3 [...] Interpretation:Normal Performing Lab: Notes/Report: Test performed by [facility] [address] , [address], [place] [address] Alexandre Reveles MD, Glove Former CLIA: [id number] Albumin/Creatinine Ratio, Urine 4 0-30 ug/m g Microalbumin, Urine, Random 0.4 Creatinine, Urine 102.7 Glycohemoglobin A1c (in hous e) Reviewed date:05/27/2024 08:55:16 AM Interpretation: Performing Lab: Notes/Report: glycohemoglobin 8.7% 5 - 6.5 % P-Comprehensive Metabolic Pa taiwo (CMP) (Not yet reviewed by provider) Interpretation: Performing Lab: Notes/Report: Test performed by [facility] [address] , [address], [place] [address] Alexandre Reveles MD, Glove Former CLIA: [id number] Sodium 140 135-145 mmol/L Potassium 4.1 3.5-5.3 [...] 0.6 <0.2-1.2 mg/dL A/G Ratio 2.0 1.1-2.5 P-Microalbumin/Creatinine, R andom Urine Sample (Not yet reviewed by provider) Interpretation: Performing Lab: Notes/Report: Test performed by [facility] [address] , [address], [place] [id number] Alexandre Reveles MD, Glove Former CLIA: [id number] Albumin/Creatinine Ratio, Urine 7 0-30 ug/m g Microalbumin, Urine, Random 0.9 Creatinine, Urine 125.0 Glycohemoglobin A1c (in hous e) Reviewed date:04/10/2025 12:16:16 PM Interpretation: Performing Lab: Notes/Report: glycohemoglobin 7.0% 5 - 6.5 % P-PSA (Not yet reviewed by mignon cohen) Interpretation: Performing Lab: Notes/Report: Test performed by [facility] [place] [address] [place] [address] , [facility], [place] [address] Alexandre Reveles MD, Glove Former CLIA: [id number] PSA 0.20 <4.00 ng/mL Please note this is an ultrasensitive PSA assay with a lower limit of detection of 0.014 ng/mL. This test is performed by the [employer] ECLIA methodology. Values obtained with different assay methods or kits cannot be directly compared. Medications Medication SIG (Take, Route, Frequency, Duration) Notes Start Date End Date Status Celecoxib 200 MG TAKE 1 CAPSULE EVERY DAY; Duration: 90 Active amLODIPine Besylate 2.5 MG 1 tablet Oral ly Once a day Active Atorvastatin Calcium 20 MG 1 tab(s) oral ly once a day; Duration: 30 days Active Xarelto 20 MG 1 tablet with food Orally Once a day; Duration: 30 day(s) Active Invokana 300 MG TAKE 1 TABLET EVERY DAY; Duration: 90 Active Metoprolol Succinate 25 MG 1 capsule Ora lly Once a day; Duration: 30 day(s) Active metFORMIN HCl 500 MG TAKE 1 TABLET TWICE DAILY orally 2 times a day; Duration: 90 days Active Metoprolol Succinate ER 50 MG 1 tablet Orally At Bed Time Active Trulicity 3 MG/0.5ML INJECT 3MG (1 PEN) UNDER THE SKIN EVERY WEEK; Duration: 84 Active Levocetirizine Dihydrochloride 5 MG 1 tab(s) orally once a day (in the evening) Active Esomeprazole Magnesium 40 MG TAKE 1 CAPSULE EVERY DAY; Duration: 90 Active Flonase Allergy Relief 50 MCG/ACT 1 spray(s) intranasally once a day 12/21/2016 Active Glimepiride 4 MG 1 tablet with breakfast or the first main meal of the day Orally Once a day; Duration: 90 days Active Mantilla Colon Health - 1 cap(s) orally once a day Active Fenofibrate 145 MG TAKE 1 TABLET EVERY DAY; Duration: 90 Not-Taking Coenzyme Q-10 100 MG 1 cap(s) orally onc e a day 09/26/2017 Active Fish Oil 1000 MG 1 cap(s) orally once daily Active Nystatin-Triamcinolone 412379-3.1 UNIT/GM 1 application Externally Twice a day 05/22/2023 Active Ventolin HFA 108 (90 Base) MCG/ACT 2 puff(s) inhaled 4 times a day; Duration: 30 day(s) 12/09/2016 Active Irbesartan 300 MG TAKE 1 TABLET ONE TI ME DAILY; Duration: 60 Active Glucosamine Chondroitin MSM - 1 tab(s) orally bid Active Immunizations Vaccine Route Administration Date Status Comme nts Tetanus Tdap-Adacel (over 7yrs) IM Intramuscular 01/26/2018 Administered Shingrix Unknown 06/30/2020 Administered Shingrix Unknown 06/30/2020 Administered Shingrix Unknown 08/30/2020 Administered Prevnar (PCV13) IM Intramuscular 09/16/2019 Administered PNEUMOVAX 23 VACCINE IM Intramuscular 01/26/2018 Administe red H1N1 flu vaccine IM Intramuscular 08/09/2009 Administered Fluzone Quad-Medicare (6months&older) Unknown 07/04/2021 Administered Fluzone Quad (6months&older) Unknown 07/22/2015 Administered Fluzone Quad (6months&older) IM Intramuscular 09/06/2016 Administered Fluzone PF Quad (6-35 months) Unknown 07/20/2015 Administered Fluzone PF Quad (6-35 months) Unknown 09/06/2016 Administered Fluzone High Dose (65yr and older) IM Intramuscular 09/16/2019 Administered Fluzone High Dose (65yr and older) IM Intramuscular 06/30/2020 Administered Fluzone High Dose (65yr and older) Unknown 07/11/2022 Administered Fluzone High Dose (65yr and older) Unknown 07/02/2023 Administered Flublok IM Intramuscular 08/05/2018 Administered COVID 19 Pfizer Unknown 12/06/2020 Administered COVID 19 Pfizer Unknown 01/03/2021 Administered COVID 19 Pfizer Unknown 07/04/2021 Administered Problems Problem Type SNOMED Code ICD Code Onset Dates Problem Status W/U Status Risk Notes Problem Type II diabetes mellitus without complication (818774584) Type 2 diabetes mellitus without complications (E11.9) Active confirmed Problem Vitamin B12 deficiency (399866218) Vitamin B12 deficiency (E53.8) Active confirmed Problem Essential hypertension (29060665) Essential hypertension (I10) Active confirmed Problem Screening for malignant neoplasm of colon (585771920) Screen for colon cancer (Z12.11) Active confirmed Problem Obstructive sleep apnea (98210328) Obstructive sleep apnea (G47.33) Active confirmed Problem Mixed hyperlipidemia (152656162) Mixed hyperlipidemia (E78.2) Active confirmed Problem Gastroesophageal reflux disease (247341764) GERD without esophagitis (K21.9) Active confirmed Problem Chronic pain (95726766) Other chronic pain (G89.29) Active confirmed Problem Disorder of prostate (94602099) Benign prostatic disease (N42.9) Active confirmed Problem Obstructive sleep apnea syndrome (70271329) Obstructive sleep apnea syndrome (G47.33) Active confirmed Problem Atherosclerotic hear t disease of [place] coronary artery without angina pectoris (424958549822866) Coronary artery disease involving [place] coronary artery of [place] heart without angina pectoris (I25.10) Active confirmed Problem Dyslipidemia (174220489) Dyslipidemia (E78.5) Active confirmed Problem Pure hypercholesterolemia (230391700) Pure hypercholesterolemia (E78.00) Active confirmed Problem Mild intermittent asthma (760543982) Mild intermittent asthmatic bronchitis without complication (J45.20) Active confirmed Problem Ventricular prematur e depolarization (516797074) Ventricular ectopics (I49.3) Active confirmed Vital Signs Heart Rate 60 /min 04/10/2025 Blood pressure diastolic 80 mm Hg 04/10/2025 Height 68.80 in 04/10/2025 Blood pressure systolic 140 mm Hg 04/10/2025 Weight 203.0 lbs 04/10/2025 BMI 30.15 kg/m2 04/10/2025 Encounters Encounter Location Date Provider Diagnosis [facility] [address] [facility] [address] [place], [place] [id number] 05/26/2024 Alok Oglesby Essential hypertensi on I10 ; Coronary artery disease involving [place] coronary artery of [place] heart without angina pectoris I25.10 ; Type 2 diabetes mellitus without complications E11.9 and Benign prostatic disease N42.9 [facility] [address] [facility] [address] [place], [place] [id number] 09/01/2024 Alok Oglesby Essential hypertensi on I10 ; Type 2 diabetes mellitus without complications E11.9 and Vitamin B12 deficiency E53.8 [facility] [address] [place] [id number] 12/05/2024 Alok Oglesby Essential hypertensi on I10 ; Coronary artery disease involving [place] coronary artery of [place] heart without angina pectoris I25.10 ; Type 2 diabetes mellitus without complications E11.9 and Dermatitis L30.9 [facility] [address] [place] [id number] 04/10/2025 Alok Oglesby Type 2 diabetes sangeeta itus without complications E11.9 ; Mixed hyperlipidemia E78.2 ; Vitamin B12 deficiency E53.8 ; Essential hypertension I10 ; Benign prostatic disease N42.9 ; Weakness of right hand R29.898 and History of double vision Z86.69 [facility] [address] [place] [id number] 04/13/2025 [facility] [place] [id number] 10/29/2024 Alok Oglesby Assessments Encounter Date Diagnosis (ICD Code) Assessment Notes Treatment Notes Treatment Clinical Notes Section Notes 05/26/2024 Essential hypertension (ICD-10 - I10) 05/26/2024 Coronary artery disease involving [place] coronary artery of [place] heart without angina pectoris (ICD-10 - I25.10) 09/01/2024 Type 2 diabetes mellitus without complications (ICD-10 - E11.9) 09/01/2024 Essential hypertension (ICD-10 - I10) 04/10/2025 Type 2 diabetes mellitus without complications (ICD-10 - E11.9) 04/10/2025 Mixed hyperlipidemia (ICD-10 - E78.2) 12/05/2024 Essential hypertension (ICD-10 - I10) Refill Nystatin/Tria mcinolone cream for use on left chest rash 12/05/2024 Coronary artery disease involving [place] coronary artery of [place] heart without angina pectoris (ICD-10 - I25.10) 12/05/2024 Type 2 diabetes mellitus without complications (ICD-10 - E11.9) 04/10/2025 Vitamin B12 deficiency (ICD-10 - E53.8) 09/01/2024 Vitamin B12 deficiency (ICD-10 - E53.8) 05/26/2024 Type 2 diabetes mellitus without complications (ICD-10 - E11.9) 05/26/2024 Benign prostatic disease (ICD-10 - N42.9) 04/10/2025 Essential hypertension (ICD-10 - I10) 12/05/2024 Dermatitis (ICD-10 - L30.9) 04/10/2025 Benign prostatic disease (ICD-10 - N42.9) 04/10/2025 Weakness of right hand (ICD-10 - R29.898) 04/10/2025 History of double vision (ICD-10 - Z86.69) Plan Of Treatment Pending Test Test Name Order Date CTA : Neck 04/10/2025 CTA : Head 04/10/2025 P-Comprehensive Metabolic Panel (CMP) P-PSA 04/10/2025 P-Microalbumin/Creatinine, Random Urine Sample 04/10/2025 Next Appt Details Provider Name:Alok Butt , 08/14/2025 09:45:00 AM, [address], [address], [place], [place], [id number], Insurance Providers Payer Name Payer Address Payer Phone Subscriber Number Group Number Insured Name Patient Relationship to Insured Coverage Start Date Coverage End Date [employer] (MEDICAR E) [address] [address] [place] [address] [id number] KACI JOSEPH Self - patient is the insured Medications Administered Medication Instructions Date of Administration Dosage Notes allergy 10/19/2007 0.05 Medical (General) History Medical History History ICD Code HTN type 2 diabetes arthritis allergy shots hemorrhoids Esophageal reflux BPH Shingrix 2 shots, second was 08/2020 Covid vaccine x2 Dec 2020 Surgical History Surgery Date(Month/Year) right leg break esophageal dilatation nose surgery heart cath 3-2-10 rotator cuff tear repair, R shoulder 05/19 015 Hospitalization History Reason Date(Month/Year) none
--- OUTSIDE RECORDS SUMMARY | 2025-04-15 08:15 | XMS_ITS | Clinical Summary ---
Author Organization Healthcare Address [address] [place] [address] Care Team Providers Care Mechanical Supervisor Name Role Phone Unavailable Primary Care Provider [...]
--- NOTE | 2025-04-15 08:57 | CT_ITS ---
FINAL REPORT CLINICAL HISTORY: WEAKNESS RT HAND,blurred vision, hx of Less than 50% bilateral carotid stenoses on ultrasound 6 months ago FINDINGS: CT NECK ANGIO, WITHOUT AND WITH CONTRAST TECHNIQUE: Thin section axial CT with contrast with multiplanar 3D MIP reconstruction. This study was performed with techniques to keep radiation doses as low as reasonably achievable, (ALARA). Individualized dose reduction techniques using automated exposure control or adjustment of mA and/or kV according to the patient''s size were employed. NASCET criteria and technique was utilized during interpretation. Aortic arch: Arch shows no significant narrowing. Great vessel origins are widely patent. Right carotid: No significant stenosis is seen of the cervical common or internal carotid artery. Left carotid: Calcification of the left carotid bulb without significant stenosis of the common or internal carotid artery. Vertebrals: No significant stenosis is present. IMPRESSION: No significant stenosis of the cervical carotid arteries Reviewed, Interpreted and Dictated by Petra Avendaño MD Transcribed by Airam Calvillo Authenticated and [facility]
[2025-04-15] MEDS: IOPAMIDOL-370 (76%);100ML BOTTLE 100 ML IV (09:08)
[2025-04-15] MEDS: 0.9 % SODIUM CHLORIDE 50 ML VIAL IV (09:08)
[2025-04-15] MEDS: SODIUM CHLORIDE 0.9% 10ML SYR (RAD ONLY) 10 ML IV (09:08)
== END 2025-04-15 23:59 | disposition home or self-care (01) ==
LOC: RAD 08:11
PROVIDERS: PCP Family Medicine; Visit Provider Family Medicine
DX: R29.898 Other symptoms and signs involving the musculoskeletal system (principal); Z86.69 Personal history of other diseases of the nervous system and sense organs
CPT/HCPCS: 70496; 70498; Q9967

== ENCOUNTER 2025-05-13 08:39 | Day surgery (SDC) | payer MEDICARE, SELFPAY ==
[2025-05-13 08:42] VITALS: BMI 29.9
--- NOTE | 2025-05-13 08:56 | SUR.PREOP ---
Patient states that he was informed a new device would not be covered by his insurance.verified with .
[2025-05-13 09:03] VITALS: BP 161/100; PULSE 72; PULSE 75; RESP 20; O2SAT 95
[2025-05-13] MEDS: LIDOCAINE 2% W/EPI 1:100,000 20ML VIAL 20 ML SUBCUT (09:52)
[2025-05-13 10:21] VITALS: BP 154/76; PULSE 81; RESP 20; O2SAT 93
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
== END 2025-05-13 10:30 | disposition home or self-care (01) ==
PROVIDERS: PCP Family Medicine; Visit Provider Internal Medicine
DX: Z45.09 Encounter for adjustment and management of other cardiac device (principal); I48.0 Paroxysmal atrial fibrillation; I25.10 Atherosclerotic heart disease of native coronary artery without angina pectoris; I49.3 Ventricular premature depolarization; E11.9 Type 2 diabetes mellitus without complications; E78.5 Hyperlipidemia, unspecified; I10 Essential (primary) hypertension; I65.23 Occlusion and stenosis of bilateral carotid arteries; I51.89 Other ill-defined heart diseases; K21.9 Gastro-esophageal reflux disease without esophagitis; Z87.891 Personal history of nicotine dependence; Z79.01 Long term (current) use of anticoagulants; Z79.84 Long term (current) use of oral hypoglycemic drugs; Z79.85 Long-term (current) use of injectable non-insulin antidiabetic drugs; Z79.51 Long term (current) use of inhaled steroids; Z79.899 Other long term (current) drug therapy; Z82.49 Family history of ischemic heart disease and other diseases of the circulatory system
CPT/HCPCS: 33286; J0690; J2004